=== PATIENT | female | born 1945 | race Caucasian/White ===

== ENCOUNTER 2022-03-31 10:12 | Inpatient (IN) | payer MEDICARE, OTHER ==
[~2022-03-31] VITALS: Ht 162.6 cm; Wt 94.7 kg
[2022-03-31 11:27] LABS: Basophils # (auto) 0.1 10 ^3/uL (0-0.2); Basophils % (auto) 0.5 % (0.0-2.0); Eosinophils # (auto) 0 10 ^3/uL (0-0.8); Hematocrit 36.6 % (36.0-46.0); Hemoglobin 11.5 g/dL (12.2-16.2); Lymphocytes # (auto) 1.6 10 ^3/uL (0.4-5.4); Lymphocytes % (auto) 7.5 % (10.0-50.0); Mean Corpuscular Hemoglobin 27.9 pg (28.0-32.0); Mean Corpuscular Hgb Conc. 31.5 g/dL (32.0-36.0); Mean Corpuscular Volume 88.7 fL (80.0-100.0); Monocytes # (auto) 1.1 10 ^3/uL (0-1.3); Monocytes % (auto) 5.2 % (0.0-12.0); Neutrophils # (auto) 18.8 10 ^3/uL (1.6-8.6); Neutrophils % (auto) 86.8 % (37.0-80.0); Nucleated Red Blood Cells % 0.1 %; Red Blood Cells 4.13 10^6/uL (4.0-5.20); Red Cell Distribution Width 13.2 % (11.8-14.3); White Blood Cell 21.7 10^3/uL (4.4-10.8)
[2022-03-31] MEDS ORDERED: ONDANSETRON HCL 4 MG/2 ML VIAL IV ONE (11:45)
[2022-03-31] MEDS ORDERED: MORPHINE SULFATE 4 MG/ML SYR/VIAL IV ONE (11:45)
[2022-03-31 11:50] LABS: Albumin 3.2 g/dL (3.4-5.0); BUN/Creatinine Ratio 16.4; Calcium 8.7 mg/dL (8.5-10.1); Potassium 4.8 mmol/L (3.5-5.1)
[2022-03-31 11:52] LABS: Bilirubin, Total 0.4 mg/dL (0.2-1.0)
[2022-03-31] MEDS ORDERED: SODIUM CHLORIDE 0.9% 1,000 ML IV ONE ×2 (14:30→17:15)
[2022-03-31] MEDS ORDERED: KETOROLAC TROMETH 30 MG/ML 1ML VIAL IV ONE (14:30)
[2022-03-31] MEDS ORDERED: SODIUM CHLORIDE 0.9% 500 ML IVB ONE (14:30)
[2022-03-31 15:53] LABS: Urine Bacteria NONE SEEN /hpf (None Seen); Urine Blood Negative /uL (Negative); Urine Hyaline Cast FEW /lpf (0 - 2); Urine Specific Gravity 1.017 (1.001-1.035); Urine WBC 1 /hpf (0 - 5)
[2022-03-31 16:16] LABS: Amphetamine Screen, Urine NEGATIVE (NEGATIVE); Barbiturate Scree,Urine NEGATIVE (NEGATIVE); Benzodiazephine Screen, Urine NEGATIVE (NEGATIVE); Cannabinoid Screen, Urine NEGATIVE (NEGATIVE); Cocaine Screen, Urine NEGATIVE (NEGATIVE); Phencyclidine Screen, Urine NEGATIVE (NEGATIVE)
[2022-03-31 16:24] LABS: Opiate Scree,Urine POSITIVE (NEGATIVE)
[2022-03-31] MEDS ORDERED: cefTRIAXone 1GM/50ML D5W 50 ML IV ONE (16:45)
[2022-03-31] MEDS ORDERED: ACETAMINOPHEN 325 MG TAB PO PRN (17:00)
[2022-03-31] MEDS ORDERED: DOCUSATE SOD 100 MG CAP PO PRN (17:00)
[2022-03-31] MEDS ORDERED: MORPHINE SULFATE INJ 2 MG/ml SYRG IV PRN (17:00)
[2022-03-31] MEDS ORDERED: ONDANSETRON HCL 4 MG/2 ML VIAL IV PRN (17:00)
[2022-03-31] MEDS: AZITHROMYCIN 500MG/ 250ML 250 ML IV SCH (20:41)
[2022-03-31] MEDS: HALOPERIDOL LACTATE 5 MG/ML INJ VIAL IM ONE ×2 (21:13→21:17)
[2022-03-31] MEDS ORDERED: HALOPERIDOL LACTATE 5 MG/ML INJ VIAL IM ONE (21:30)
[2022-03-31] MEDS: HYDROcodone-ACET 5/325MG TAB PO PRN (23:42)
[2022-03-31] MEDS: DULoxetine HCL 30 MG CAP PO SCH (23:42)
[2022-03-31] MEDS: GABAPENTIN 300 MG CAP PO SCH (23:42)
[2022-03-31] MEDS: traZODone HCL 50 MG TAB PO SCH (23:42)
[2022-04-01 05:14] LABS: Basophils # (auto) 0 10 ^3/uL (0-0.2); Basophils % (auto) 0.3 % (0.0-2.0); Eosinophils # (auto) 0 10 ^3/uL (0-0.8); Eosinophils % (auto) 0.3 % (0.0-7.0); Hematocrit 30.3 % (36.0-46.0); Hemoglobin 9.8 g/dL (12.2-16.2); Lymphocytes # (auto) 2.2 10 ^3/uL (0.4-5.4); Lymphocytes % (auto) 16.3 % (10.0-50.0); Mean Corpuscular Hemoglobin 28.5 pg (28.0-32.0); Mean Corpuscular Hgb Conc. 32.1 g/dL (32.0-36.0); Mean Corpuscular Volume 88.8 fL (80.0-100.0); Monocytes # (auto) 0.9 10 ^3/uL (0-1.3); Neutrophils # (auto) 10.1 10 ^3/uL (1.6-8.6); Neutrophils % (auto) 76.1 % (37.0-80.0); Red Blood Cells 3.42 10^6/uL (4.0-5.20); Red Cell Distribution Width 12.9 % (11.8-14.3); White Blood Cell 13.3 10^3/uL (4.4-10.8)
[2022-04-01 05:34] LABS: Albumin 2.7 g/dL (3.4-5.0); Potassium 3.9 mmol/L (3.5-5.1)
[2022-04-01 05:40] LABS: BUN/Creatinine Ratio 24.4; Bilirubin, Total 0.4 mg/dL (0.2-1.0); Calcium 8.3 mg/dL (8.5-10.1); Total Protein 5.7 g/dL (6.4-8.2)
[2022-04-01] MEDS: GABAPENTIN 300 MG CAP PO SCH ×3 (06:37→21:25)
[2022-04-01] MEDS: LEVOTHYROXINE SODIUM 25 MCG TAB PO SCH (06:37)
[2022-04-01] MEDS ORDERED: MAGNESIUM SULFATE 1GM/100ML 100 ML IV ONE (09:15)
[2022-04-01] MEDS: cefTRIAXone 1GM/50ML D5W 50 ML IV SCH (09:49)
[2022-04-01] MEDS ORDERED: METOPROLOL SUCCINATE XL 50 MG TAB PO SCH (10:00)
[2022-04-01] MEDS: AZITHROMYCIN 500MG/ 250ML 250 ML IV SCH (10:46)
[2022-04-01] MEDS: ENOXAPARIN SOD 30 MG/0.3 ML SYRINGE SC SCH (10:47)
[2022-04-01] MEDS: DULoxetine HCL 30 MG CAP PO SCH ×2 (10:48→21:25)
[2022-04-01] MEDS ORDERED: methylPREDNISolone SOD SUCC 125 MG/2 ML VL IM ONE (11:15)
[2022-04-01] MEDS ORDERED: methylPREDNISolone SOD SUCC 125 MG/2 ML VL IV ONE (12:15)
[2022-04-01] MEDS: ALBUTEROL SULF 2.5 MG/0.5ML(0.5%) NEB SOLN NEB SCH ×3 (14:12→22:13)
[2022-04-01] MEDS: IPRATROPIUM BROM 0.5 MG/2.5ML INH SOL NEB SCH ×3 (14:12→22:13)
[2022-04-01 14:56] VITALS: BP 134/70
[2022-04-01 15:48] VITALS: BP 119/72
[2022-04-01] MEDS ORDERED: DULO1CAP6 PO (18:54)
[2022-04-01] MEDS ORDERED: PANT40T (18:54)
[2022-04-01] MEDS ORDERED: METO-289 PO (18:54)
[2022-04-01] MEDS ORDERED: BACL10TA PO (18:54)
[2022-04-01] MEDS ORDERED: MONT-8 PO (18:54)
[2022-04-01] MEDS ORDERED: HYDR-4072 PO (18:54)
[2022-04-01] MEDS ORDERED: ALBU108A5 PO (18:54)
[2022-04-01] MEDS ORDERED: TRAZ100T3 PO (18:54)
[2022-04-01] MEDS ORDERED: BUPR100T8 PO (18:54)
[2022-04-01] MEDS ORDERED: LEV25T PO (18:54)
[2022-04-01] MEDS ORDERED: GABA300C10 PO (18:54)
[2022-04-01] MEDS: HYDROcodone-ACET 5/325MG TAB PO PRN (20:01)
[2022-04-01] MEDS: traZODone HCL 50 MG TAB PO SCH (21:24)
[2022-04-01 22:00] VITALS: BP 143/74
[2022-04-02] MEDS: ALBUTEROL SULF 2.5 MG/0.5ML(0.5%) NEB SOLN NEB SCH ×7 (02:14→21:51)
[2022-04-02] MEDS: IPRATROPIUM BROM 0.5 MG/2.5ML INH SOL NEB SCH ×7 (02:14→21:51)
[2022-04-02 05:00] VITALS: BP 138/79
[2022-04-02] MEDS: LEVOTHYROXINE SODIUM 25 MCG TAB PO SCH (05:52)
[2022-04-02] MEDS: GABAPENTIN 300 MG CAP PO SCH ×3 (05:52→22:47)
[2022-04-02 08:00] VITALS: BP 141/82
[2022-04-02] MEDS: cefTRIAXone 1GM/50ML D5W 50 ML IV SCH (09:30)
[2022-04-02] MEDS: DULoxetine HCL 30 MG CAP PO SCH ×2 (09:30→22:47)
[2022-04-02] MEDS: methylPREDNISolone SOD SUCC 125 MG/2 ML VL IV SCH (09:30)
[2022-04-02] MEDS: ENOXAPARIN SOD 30 MG/0.3 ML SYRINGE SC SCH (09:30)
[2022-04-02] MEDS: AZITHROMYCIN 500MG/ 250ML 250 ML IV SCH (11:32)
[2022-04-02 13:00] VITALS: BP 138/89
[2022-04-02 22:00] VITALS: BP 154/91
[2022-04-02] MEDS: traZODone HCL 50 MG TAB PO SCH (22:47)
[2022-04-02] MEDS: HYDROcodone-ACET 5/325MG TAB PO PRN (22:47)
[2022-04-02 23:46] VITALS: BP 148/82
[2022-04-03] MEDS: guaiFENesin-DM 100/10mg/5ml SYR PO PRN (02:14)
[2022-04-03] MEDS: IPRATROPIUM BROM 0.5 MG/2.5ML INH SOL NEB SCH ×6 (04:00→22:49)
[2022-04-03] MEDS: ALBUTEROL SULF 2.5 MG/0.5ML(0.5%) NEB SOLN NEB SCH ×6 (04:00→22:49)
[2022-04-03 05:00] VITALS: BP 147/86
[2022-04-03] MEDS: GABAPENTIN 300 MG CAP PO SCH ×3 (06:33→21:05)
[2022-04-03] MEDS: LEVOTHYROXINE SODIUM 25 MCG TAB PO SCH (06:47)
[2022-04-03 09:00] VITALS: BP 159/94
[2022-04-03] MEDS: cefTRIAXone 1GM/50ML D5W 50 ML IV SCH (10:29)
[2022-04-03] MEDS: methylPREDNISolone SOD SUCC 125 MG/2 ML VL IV SCH (10:29)
[2022-04-03] MEDS: ENOXAPARIN SOD 30 MG/0.3 ML SYRINGE SC SCH (10:30)
[2022-04-03] MEDS: AZITHROMYCIN 500MG/ 250ML 250 ML IV SCH (10:30)
[2022-04-03] MEDS: DULoxetine HCL 30 MG CAP PO SCH ×2 (10:30→21:05)
[2022-04-03] MEDS: HYDROcodone-ACET 5/325MG TAB PO PRN (11:52)
[2022-04-03 13:00] VITALS: BP 159/87
[2022-04-03 17:16] VITALS: BP 159/92
[2022-04-03] MEDS: traZODone HCL 50 MG TAB PO SCH (21:05)
[2022-04-03 22:00] VITALS: BP 144/81
[2022-04-04] MEDS: ALBUTEROL SULF 2.5 MG/0.5ML(0.5%) NEB SOLN NEB SCH ×6 (02:40→21:57)
[2022-04-04] MEDS: IPRATROPIUM BROM 0.5 MG/2.5ML INH SOL NEB SCH ×6 (02:40→21:57)
[2022-04-04 04:30] VITALS: BP 122/80
[2022-04-04] MEDS: GABAPENTIN 300 MG CAP PO SCH ×3 (05:32→22:28)
[2022-04-04] MEDS: guaiFENesin-DM 100/10mg/5ml SYR PO PRN ×2 (05:42→22:32)
[2022-04-04] MEDS: LEVOTHYROXINE SODIUM 25 MCG TAB PO SCH (06:15)
[2022-04-04 09:00] VITALS: BP 168/88
[2022-04-04] MEDS: ENOXAPARIN SOD 40 MG/0.4 ML SYRINGE SC SCH (09:01)
[2022-04-04] MEDS: DULoxetine HCL 30 MG CAP PO SCH ×2 (09:01→22:29)
[2022-04-04] MEDS: methylPREDNISolone SOD SUCC 125 MG/2 ML VL IV SCH (09:02)
[2022-04-04] MEDS: cefTRIAXone 1GM/50ML D5W 50 ML IV SCH (09:02)
[2022-04-04] MEDS: AZITHROMYCIN 500MG/ 250ML 250 ML IV SCH (09:56)
[2022-04-04] MEDS: HYDROcodone-ACET 5/325MG TAB PO PRN ×2 (10:03→16:24)
[2022-04-04 13:00] VITALS: BP 159/91
[2022-04-04 15:26] VITALS: BP 168/88
[2022-04-04 17:00] VITALS: BP 162/99
[2022-04-04] MEDS ORDERED: METOPROLOL SUCCINATE XL 50 MG TAB PO ONE (18:15)
[2022-04-04] MEDS ORDERED: hydrALAZINE HCL 20 MG/ML VL IV PRN (18:15)
[2022-04-04 22:00] VITALS: BP 154/91
[2022-04-04] MEDS: traZODone HCL 50 MG TAB PO SCH (22:29)
[2022-04-05] MEDS: ALBUTEROL SULF 2.5 MG/0.5ML(0.5%) NEB SOLN NEB SCH ×4 (01:58→14:12)
[2022-04-05] MEDS: IPRATROPIUM BROM 0.5 MG/2.5ML INH SOL NEB SCH ×4 (01:58→14:12)
[2022-04-05 05:00] VITALS: BP 162/92
[2022-04-05] MEDS: GABAPENTIN 300 MG CAP PO SCH ×2 (06:10→14:29)
[2022-04-05] MEDS: LEVOTHYROXINE SODIUM 25 MCG TAB PO SCH (06:11)
[2022-04-05 08:35] VITALS: BP 169/91
[2022-04-05] MEDS: methylPREDNISolone SOD SUCC 125 MG/2 ML VL IV SCH (08:36)
[2022-04-05] MEDS: cefTRIAXone 1GM/50ML D5W 50 ML IV SCH (08:36)
[2022-04-05] MEDS: guaiFENesin-DM 100/10mg/5ml SYR PO PRN (08:36)
[2022-04-05] MEDS: HYDROcodone-ACET 5/325MG TAB PO PRN ×2 (08:37→14:30)
[2022-04-05] MEDS: ENOXAPARIN SOD 40 MG/0.4 ML SYRINGE SC SCH (08:37)
[2022-04-05] MEDS: DULoxetine HCL 30 MG CAP PO SCH (08:37)
[2022-04-05] MEDS: AZITHROMYCIN 500MG/ 250ML 250 ML IV SCH (09:23)
[2022-04-05] MEDS ORDERED: AZIT500T66 PO (09:38)
[2022-04-05] MEDS ORDERED: PRED20TA2 PO (09:38)
[2022-04-05] MEDS ORDERED: METOPROLOL SUCCINATE XL 50 MG TAB PO SCH (10:00)
[2022-04-05 10:02] VITALS: BP 153/99
[2022-04-05 12:15] VITALS: BP 154/100
[2022-04-05 12:30] VITALS: BP 152/100
== END 2022-04-05 15:10 | disposition home health service (06) | DRG 871 ==
LOC: ER 10:12 → EDBD 10:12 → TELE-CENTR 14:43 → TELE 17:04 → TELE-CENTR 04-01 14:50
PROVIDERS: ADMIT Internal Medicine; ATTEND Family Medicine
DX: A41.9 Sepsis, unspecified organism (principal); I21.A1 Myocardial infarction type 2; J18.9 Pneumonia, unspecified organism; J96.21 Acute and chronic respiratory failure with hypoxia; E44.1 Mild protein-calorie malnutrition; J98.11 Atelectasis; N17.9 Acute kidney failure, unspecified; J44.0 Chronic obstructive pulmonary disease with (acute) lower respiratory infection; Z20.822 Contact with and (suspected) exposure to COVID-19; E03.9 Hypothyroidism, unspecified; D64.9 Anemia, unspecified; G89.4 Chronic pain syndrome; I12.9 Hypertensive chronic kidney disease with stage 1 through stage 4 chronic kidney disease, or unspecified chronic kidney disease; J84.112 Idiopathic pulmonary fibrosis; M75.32 Calcific tendinitis of left shoulder; M75.91 Shoulder lesion, unspecified, right shoulder; N18.32 Chronic kidney disease, stage 3b; F41.9 Anxiety disorder, unspecified; I95.9 Hypotension, unspecified; R41.82 Altered mental status, unspecified; F32.A Depression, unspecified; G62.9 Polyneuropathy, unspecified; Z68.35 Body mass index [BMI] 35.0-35.9, adult
CPT/HCPCS: 36415; 70450; 71045; 80053; 80307; 81001; 82962; 83605; 83735; 84443; 84484; 85025; 87040; 87077; 87186; 93005; 93306; 93970; 94640; 96361; 96365; G0378; J0696; J1885

== ENCOUNTER 2022-12-17 18:16 | Inpatient (IN) | payer MEDICARE ==
[~2022-12-17] VITALS: Ht 165.1 cm; Wt 79.3 kg
[~2022-12-17 18:16] MED LIST: ALBU108A5 PO; AZIT500T66 PO; BACL10TA PO; BUPR100T16 PO; DULO1CAP6 PO; GABA-1250 PO; HYDR-4072 PO; LEV25T PO; METO-289 PO; MONT-8 PO; PANT40T; PRED20TA2 PO; TRAZ-228 PO
[2022-12-17 21:38] LABS: Albumin 3.3 g/dL (3.4-5.0); Anion Gap 8 (5-15); Blood Alcohol < 3.0 mg/dL (0-5); Blood Urea Nitrogen 18 mg/dL (7-18); Calcium 9.2 mg/dL (8.5-10.1); Carbon Dioxide 29 mmol/L (21-32); Chloride 104 mmol/L (98-107); Glucose 99 mg/dL (74-106); Magnesium 1.4 mg/dL (1.6-2.6); Potassium 3.9 mmol/L (3.5-5.1); Sodium 141 mmol/L (136-145)
[2022-12-17 21:47] LABS: INR 0.99 (0.9-1.15); Partial Thromboplastin Time 23.9 sec (24.6-33.4)
[2022-12-17 21:48] LABS: Basophils # (auto) 0.1 10 ^3/uL (0-0.2); Basophils % (auto) 0.5 % (0.0-2.0); Eosinophils # (auto) 0 10 ^3/uL (0-0.8); Eosinophils % (auto) 0.4 % (0.0-7.0); Hemoglobin 10.9 g/dL (12.2-16.2); Lymphocytes # (auto) 3.4 10 ^3/uL (0.4-5.4); Lymphocytes % (auto) 33.8 % (10.0-50.0); Mean Corpuscular Hemoglobin 28.4 pg (28.0-32.0); Mean Corpuscular Volume 88.8 fL (80.0-100.0); Monocytes # (auto) 0.8 10 ^3/uL (0-1.3); Monocytes % (auto) 8.1 % (0.0-12.0); Neutrophils # (auto) 5.7 10 ^3/uL (1.6-8.6); Neutrophils % (auto) 57.2 % (37.0-80.0); Nucleated Red Blood Cells % 0.1 %; Red Blood Cells 3.83 10^6/uL (4.0-5.20); Red Cell Distribution Width 13.1 % (11.8-14.3)
[2022-12-17 21:52] LABS: Alanine Aminotransferase 18 U/L (13-56); Alkaline Phosphatase 69 U/L (45-117); Aspartate Aminotransferase 23 U/L (15-37); Bilirubin, Total 0.2 mg/dL (0.2-1.0); GFR African American 78 mL/min; GFR Non-African American 65 mL/min; Total Protein 6.2 g/dL (6.4-8.2)
[2022-12-17] MEDS ORDERED: ONDANSETRON HCL 4 MG/2 ML VIAL IV PRN (23:30)
[2022-12-17] MEDS ORDERED: DOCUSATE SOD 100 MG CAP PO PRN (23:30)
[2022-12-17] MEDS ORDERED: NITROGLYCERIN 0.4 MG SL TAB SL PRN (23:30)
[2022-12-17] MEDS ORDERED: MORPHINE SULFATE INJ 2 MG/ml SYRG IV PRN (23:30)
[2022-12-18] MEDS ORDERED: BACLOFEN 10 MG TAB PO ONE
[2022-12-18] MEDS: MAGNESIUM SULFATE 1GM/100ML 100 ML IV SCH ×2 (01:03→02:00)
[2022-12-18] MEDS: HYDROcodone-ACET 5/325MG TAB PO PRN ×2 (02:04→19:56)
[2022-12-18] MEDS: BACLOFEN 10 MG TAB PO SCH ×3 (06:30→22:14)
[2022-12-18] MEDS: LEVOTHYROXINE SODIUM 25 MCG TAB PO SCH (06:30)
[2022-12-18 06:42] LABS: Albumin 3.1 g/dL (3.4-5.0); BUN/Creatinine Ratio 16.3 (10.0-20.0); Bilirubin, Total 0.3 mg/dL (0.2-1.0); Calcium 9.2 mg/dL (8.5-10.1); Total Protein 6.7 g/dL (6.4-8.2)
[2022-12-18 07:42] LABS: Potassium 4.1 mmol/L (3.5-5.1)
[2022-12-18 08:06] LABS: Basophils # (auto) 0.1 10 ^3/uL (0-0.2); Basophils % (auto) 0.6 % (0.0-2.0); Eosinophils # (auto) 0.1 10 ^3/uL (0-0.8); Eosinophils % (auto) 0.9 % (0.0-7.0); Hematocrit 35.4 % (36.0-46.0); Hemoglobin 11.3 g/dL (12.2-16.2); Lymphocytes # (auto) 3.2 10 ^3/uL (0.4-5.4); Lymphocytes % (auto) 35.8 % (10.0-50.0); Mean Corpuscular Hemoglobin 28.4 pg (28.0-32.0); Mean Corpuscular Hgb Conc. 31.8 g/dL (32.0-36.0); Mean Corpuscular Volume 89.3 fL (80.0-100.0); Neutrophils # (auto) 4.6 10 ^3/uL (1.6-8.6); Neutrophils % (auto) 51.7 % (37.0-80.0); Nucleated Red Blood Cells % 0.2 %; Red Blood Cells 3.96 10^6/uL (4.0-5.20)
[2022-12-18] MEDS: ASPirin 81 mg TAB PO SCH (10:26)
[2022-12-18] MEDS: FAMOTIDINE (10MG/ML) 2ML VL IV SCH (10:44)
[2022-12-18 15:59] LABS: Urine Bacteria FEW /hpf (None Seen); Urine Blood 1+ /uL (Negative); Urine Specific Gravity 1.017 (1.001-1.035); Urine WBC 2770 /hpf (0 - 5); Urine WBC Clumps PRESENT /hpf (None Seen)
[2022-12-18] MEDS ORDERED: HALOPERIDOL LACTATE 5 MG/ML INJ VIAL IM ONE ×2 (18:00→20:15)
[2022-12-18] MEDS ORDERED: LORazepam 2MG/ML-1ML VIAL IV ONE ×2 (18:00→21:45)
[2022-12-18] MEDS: cefTRIAXone 1GM/50ML D5W 50 ML IV SCH (19:42)
[2022-12-18] MEDS: buPROPion HCL 100 MG TAB PO SCH (19:56)
[2022-12-18] MEDS ORDERED: diphenhdrAMINE HCL 50 MG/1 ML VL ONE (20:04)
[2022-12-18] MEDS ORDERED: HALOPERIDOL LACTATE 5 MG/ML INJ VIAL ONE (20:04)
[2022-12-18] MEDS ORDERED: diphenhdrAMINE HCL 50 MG/1 ML VL IV ONE (20:15)
[2022-12-18] MEDS ORDERED: LORazepam 2MG/ML-1ML VIAL ONE (21:44)
[2022-12-18] MEDS: DULoxetine HCL 30 MG CAP PO SCH (22:14)
[2022-12-18] MEDS ORDERED: MIDAZOLAM DRIP 50 mg/50mL 50 ML IV ONE (23:29)
[2022-12-18] MEDS ORDERED: ETOMIDATE (2MG/ML) 20ML VIAL IV ONE (23:30)
[2022-12-18] MEDS ORDERED: ROCURONIUM 10MG/ML 10ML VIAL IV ONE (23:30)
[2022-12-18] MEDS: MIDAZOLAM DRIP 50 mg/50mL 50 ML IV SCH (23:49)
[2022-12-19] VITALS (44 sets, daily range): BP systolic 99–131; BP diastolic 71–99
[2022-12-19] MEDS ORDERED: fentaNYL Drip 2500mCg/250mlNS 250 ML IV ONE (01:26)
[2022-12-19] MEDS: SODIUM CHLORIDE 0.9% 1,000 ML IV SCH ×2 (01:30→12:59)
[2022-12-19] MEDS ORDERED: MIDAZOLAM HCL 5 MG/ML-1ML VIAL IV ONE (01:30)
[2022-12-19] MEDS: fentaNYL Drip 2500mCg/250mlNS 250 ML IV SCH (01:35)
[2022-12-19] MEDS: FAMOTIDINE (10MG/ML) 2ML VL IV SCH ×3 (02:42→21:43)
[2022-12-19] MEDS: MIDAZOLAM DRIP 50 mg/50mL 50 ML IV SCH ×2 (06:25→15:53)
[2022-12-19] MEDS: buPROPion HCL 100 MG TAB PO SCH ×2 (07:18→18:43)
[2022-12-19] MEDS: LEVOTHYROXINE SODIUM 25 MCG TAB PO SCH (07:18)
[2022-12-19] MEDS: BACLOFEN 10 MG TAB PO SCH (07:18)
[2022-12-19] MEDS: cefTRIAXone 1GM/50ML D5W 50 ML IV SCH (09:12)
[2022-12-19] MEDS: ASPirin 81 mg TAB PO SCH (10:47)
[2022-12-19] MEDS: DULoxetine HCL 30 MG CAP PO SCH ×3 (10:47→21:52)
[2022-12-19] MEDS: METOPROLOL TARTRATE 25 MG TAB PO SCH ×2 (12:54→21:43)
[2022-12-19 13:42] LABS: Albumin 3.2 g/dL (3.4-5.0); Calcium 8.6 mg/dL (8.5-10.1); Potassium 3.4 mmol/L (3.5-5.1)
[2022-12-19 13:46] LABS: BUN/Creatinine Ratio 16.7 (10.0-20.0); Bilirubin, Total 0.4 mg/dL (0.2-1.0); Total Protein 7.2 g/dL (6.4-8.2)
[2022-12-20] VITALS (99 sets, daily range): BP systolic 71–137; BP diastolic 30–88
[2022-12-20] MEDS: fentaNYL Drip 2500mCg/250mlNS 250 ML IV SCH (01:30)
[2022-12-20] MEDS: MIDAZOLAM DRIP 50 mg/50mL 50 ML IV SCH ×2 (06:10→18:20)
[2022-12-20] MEDS: LEVOTHYROXINE SODIUM 25 MCG TAB PO SCH (08:03)
[2022-12-20] MEDS: buPROPion HCL 100 MG TAB PO SCH ×2 (08:03→22:17)
[2022-12-20] MEDS: cefTRIAXone 1GM/50ML D5W 50 ML IV SCH (08:04)
[2022-12-20 08:20] LABS: Albumin 2.5 g/dL (3.4-5.0); BUN/Creatinine Ratio 14.3 (10.0-20.0); Calcium 7.9 mg/dL (8.5-10.1); Potassium 3.7 mmol/L (3.5-5.1)
[2022-12-20 08:22] LABS: Bilirubin, Total 0.5 mg/dL (0.2-1.0); Total Protein 6.1 g/dL (6.4-8.2)
[2022-12-20 09:56] LABS: Basophils # (auto) 0.1 10 ^3/uL (0-0.2); Basophils % (auto) 0.5 % (0.0-2.0); Eosinophils # (auto) 0 10 ^3/uL (0-0.8); Eosinophils % (auto) 0.2 % (0.0-7.0); Hematocrit 36.2 % (36.0-46.0); Hemoglobin 11.5 g/dL (12.2-16.2); Lymphocytes % (auto) 20.6 % (10.0-50.0); Mean Corpuscular Hemoglobin 28.1 pg (28.0-32.0); Mean Corpuscular Hgb Conc. 31.9 g/dL (32.0-36.0); Mean Corpuscular Volume 88.1 fL (80.0-100.0); Monocytes # (auto) 1.6 10 ^3/uL (0-1.3); Monocytes % (auto) 11.1 % (0.0-12.0); Neutrophils # (auto) 9.8 10 ^3/uL (1.6-8.6); Neutrophils % (auto) 67.6 % (37.0-80.0); Nucleated Red Blood Cells % 0.1 %; Red Blood Cells 4.11 10^6/uL (4.0-5.20); White Blood Cell 14.6 10^3/uL (4.4-10.8)
[2022-12-20] MEDS: DULoxetine HCL 30 MG CAP PO SCH ×2 (10:00→22:00)
[2022-12-20] MEDS: ASPirin 81 mg TAB PO SCH (10:13)
[2022-12-20] MEDS: METOPROLOL TARTRATE 25 MG TAB PO SCH (10:14)
[2022-12-20] MEDS: FAMOTIDINE (10MG/ML) 2ML VL IV SCH ×2 (10:14→22:13)
[2022-12-20] MEDS: SODIUM CHLORIDE 0.9% 1,000 ML IV SCH ×2 (12:09→18:24)
[2022-12-20] MEDS ORDERED: NOREPINEPHRINE 8 MG/250ML KIT 250 ML IV SCH (12:30)
[2022-12-20] MEDS ORDERED: SODIUM CHLORIDE 0.9% 500 ML IV ONE (13:00)
[2022-12-20] MEDS ORDERED: NOREPINEPHRINE 8 MG/250ML KIT 250 ML IV ONE (14:26)
[2022-12-20] MEDS: NOREPINEPHRINE 8 MG/250ML KIT 250 ML IV SCH (14:26)
[2022-12-20] MEDS ORDERED: MAGNESIUM SULFATE 1GM/100ML 200 ML IV ONE (14:33)
[2022-12-20] MEDS ORDERED: AMIODARONE 450mg/250ml AE 250 ML IV ONE (14:42)
[2022-12-20] MEDS ORDERED: AMIODARONE HCL 150 MG in D5W 5% 100 ML IV ONE (14:45)
[2022-12-20] MEDS ORDERED: AMIODARONE 450mg/250ml AE 250 ML IV SCH (14:45)
[2022-12-20 15:29] LABS: Basophils # (auto) 0.1 10 ^3/uL (0-0.2); Basophils % (auto) 0.4 % (0.0-2.0); Eosinophils # (auto) 0 10 ^3/uL (0-0.8); Eosinophils % (auto) 0.2 % (0.0-7.0); Hematocrit 36.4 % (36.0-46.0); Hemoglobin 11.6 g/dL (12.2-16.2); Lymphocytes # (auto) 2.4 10 ^3/uL (0.4-5.4); Lymphocytes % (auto) 12.9 % (10.0-50.0); Mean Corpuscular Hemoglobin 28.2 pg (28.0-32.0); Mean Corpuscular Hgb Conc. 31.9 g/dL (32.0-36.0); Mean Corpuscular Volume 88.6 fL (80.0-100.0); Monocytes # (auto) 1.4 10 ^3/uL (0-1.3); Monocytes % (auto) 7.3 % (0.0-12.0); Neutrophils # (auto) 14.7 10 ^3/uL (1.6-8.6); Neutrophils % (auto) 79.2 % (37.0-80.0); Red Blood Cells 4.11 10^6/uL (4.0-5.20); Red Cell Distribution Width 13.2 % (11.8-14.3); White Blood Cell 18.6 10^3/uL (4.4-10.8)
[2022-12-20] MEDS: MAGNESIUM SULFATE 1GM/100ML 100 ML IV SCH ×2 (15:55→16:30)
[2022-12-20 16:02] LABS: Potassium 3.7 mmol/L (3.5-5.1)
[2022-12-20 16:07] LABS: Calcium 8.1 mg/dL (8.5-10.1); Magnesium 2.4 mg/dL (1.6-2.6)
[2022-12-20 18:26] LABS: BUN/Creatinine Ratio 12.8 (10.0-20.0)
[2022-12-20] MEDS: AMIODARONE 450mg/250ml AE 250 ML IV SCH (22:00)
[2022-12-20] MEDS: ENOXAPARIN SOD 100 MG/1 ML SYRINGE SC SCH (22:13)
[2022-12-20] MEDS: NYSTATIN TOPICAL POWDER 15GM TOP SCH (22:17)
[2022-12-21] VITALS (106 sets, daily range): BP systolic 85–122; BP diastolic 52–77
[2022-12-21] MEDS ORDERED: AMIODARONE HCL (50 MG/ ML) 3 ML VIAL IV ONE (01:01)
[2022-12-21] MEDS ORDERED: ADENOSINE 6 MG/2 ML INJ IV ONE (01:01)
[2022-12-21] MEDS: fentaNYL Drip 2500mCg/250mlNS 250 ML IV SCH ×2 (01:30→20:42)
[2022-12-21 04:31] LABS: Basophils # (auto) 0 10 ^3/uL (0-0.2); Basophils % (auto) 0.3 % (0.0-2.0); Eosinophils # (auto) 0 10 ^3/uL (0-0.8); Eosinophils % (auto) 0.3 % (0.0-7.0); Hematocrit 33.8 % (36.0-46.0); Hemoglobin 11.2 g/dL (12.2-16.2); Lymphocytes # (auto) 3.5 10 ^3/uL (0.4-5.4); Lymphocytes % (auto) 24.2 % (10.0-50.0); Mean Corpuscular Hemoglobin 29.2 pg (28.0-32.0); Mean Corpuscular Volume 88.4 fL (80.0-100.0); Monocytes # (auto) 2.1 10 ^3/uL (0-1.3); Monocytes % (auto) 14.6 % (0.0-12.0); Neutrophils # (auto) 8.9 10 ^3/uL (1.6-8.6); Neutrophils % (auto) 60.6 % (37.0-80.0); Red Blood Cells 3.82 10^6/uL (4.0-5.20); Red Cell Distribution Width 12.8 % (11.8-14.3); White Blood Cell 14.6 10^3/uL (4.4-10.8)
[2022-12-21 04:58] LABS: BUN/Creatinine Ratio 15.5 (10.0-20.0); Calcium 7.7 mg/dL (8.5-10.1)
[2022-12-21] MEDS: SODIUM CHLORIDE 0.9% 1,000 ML IV SCH (05:59)
[2022-12-21] MEDS: buPROPion HCL 100 MG TAB PO SCH ×2 (06:02→18:40)
[2022-12-21] MEDS: LEVOTHYROXINE SODIUM 25 MCG TAB PO SCH (06:02)
[2022-12-21] MEDS ORDERED: POTASSIUM EFFERVESENT TAB 25 MEQ GT ONE (08:45)
[2022-12-21] MEDS: ENOXAPARIN SOD 100 MG/1 ML SYRINGE SC SCH ×2 (09:08→21:30)
[2022-12-21] MEDS: FAMOTIDINE (10MG/ML) 2ML VL IV SCH ×2 (09:09→21:29)
[2022-12-21] MEDS: D5W/SOD CHL 0.45%/KCL 20MEQ 1,000 ML IV SCH (09:09)
[2022-12-21] MEDS: ASPirin 81 mg TAB PO SCH (09:09)
[2022-12-21] MEDS: DULoxetine HCL 30 MG CAP PO SCH ×2 (09:09→21:29)
[2022-12-21] MEDS: NYSTATIN TOPICAL POWDER 15GM TOP SCH ×2 (09:11→21:30)
[2022-12-21] MEDS ORDERED: MAGNESIUM SULFATE 1GM/100ML 100 ML IV ONE (09:30)
[2022-12-21 09:52] LABS: Cholesterol 130 mg/dL (< 200); HDL Cholesterol 66 mg/dL (40-59); LDL Cholesterol 57 mg/dL (< 100); Triglycerides 74 mg/dL (< 150)
[2022-12-21] MEDS: MIDAZOLAM DRIP 50 mg/50mL 50 ML IV SCH ×2 (12:04→14:43)
[2022-12-21] MEDS: AMIODARONE 450mg/250ml AE 250 ML IV SCH (12:05)
[2022-12-21] MEDS: MEROPENEM 1GM IVPB 100 ML IV SCH ×2 (12:05→18:35)
[2022-12-21] MEDS: NOREPINEPHRINE 8 MG/250ML KIT 250 ML IV SCH ×2 (16:00→20:41)
[2022-12-22] VITALS (99 sets, daily range): BP systolic 84–114; BP diastolic 50–86
[2022-12-22] MEDS: MEROPENEM 1GM IVPB 100 ML IV SCH ×3 (01:31→17:30)
[2022-12-22] MEDS: AMIODARONE 450mg/250ml AE 250 ML IV SCH (02:45)
[2022-12-22 04:17] LABS: Basophils # (auto) 0.1 10 ^3/uL (0-0.2); Basophils % (auto) 0.3 % (0.0-2.0); Eosinophils # (auto) 0 10 ^3/uL (0-0.8); Eosinophils % (auto) 0.2 % (0.0-7.0); Hematocrit 32.4 % (36.0-46.0); Hemoglobin 10.7 g/dL (12.2-16.2); Lymphocytes # (auto) 2.5 10 ^3/uL (0.4-5.4); Lymphocytes % (auto) 16.3 % (10.0-50.0); Mean Corpuscular Hemoglobin 28.9 pg (28.0-32.0); Mean Corpuscular Hgb Conc. 32.9 g/dL (32.0-36.0); Mean Corpuscular Volume 87.8 fL (80.0-100.0); Monocytes # (auto) 1.7 10 ^3/uL (0-1.3); Monocytes % (auto) 11.5 % (0.0-12.0); Neutrophils # (auto) 10.8 10 ^3/uL (1.6-8.6); Neutrophils % (auto) 71.7 % (37.0-80.0); Red Blood Cells 3.69 10^6/uL (4.0-5.20); White Blood Cell 15.1 10^3/uL (4.4-10.8)
[2022-12-22 04:29] LABS: Calcium 7.8 mg/dL (8.5-10.1); Potassium 3.7 mmol/L (3.5-5.1)
[2022-12-22 04:34] LABS: Albumin 2.1 g/dL (3.4-5.0); BUN/Creatinine Ratio 12.9 (10.0-20.0); Bilirubin, Total 0.4 mg/dL (0.2-1.0); Magnesium 1.7 mg/dL (1.6-2.6); Total Protein 5.7 g/dL (6.4-8.2)
[2022-12-22] MEDS: D5W/SOD CHL 0.45%/KCL 20MEQ 1,000 ML IV SCH ×4 (04:43→21:40)
[2022-12-22] MEDS: MIDAZOLAM DRIP 50 mg/50mL 50 ML IV SCH (04:48)
[2022-12-22 04:52] LABS: INR 1.09 (0.9-1.15); Partial Thromboplastin Time 32.8 sec (24.6-33.4)
[2022-12-22] MEDS: LEVOTHYROXINE SODIUM 25 MCG TAB PO SCH (06:41)
[2022-12-22] MEDS: buPROPion HCL 100 MG TAB PO SCH (06:42)
[2022-12-22] MEDS: ASPirin 81 mg TAB PO SCH (10:00)
[2022-12-22] MEDS: ENOXAPARIN SOD 100 MG/1 ML SYRINGE SC SCH ×2 (10:00→21:39)
[2022-12-22] MEDS ORDERED: LIDOCAINE 2%HCL (LOCAL ANESTH.) INJ 20ML MDV ONE (10:21)
[2022-12-22] MEDS ORDERED: IODIXANOL 320MG/ML 100ML BTL IV ONE (10:21)
[2022-12-22] MEDS ORDERED: ANGIOMAX 250 MG VIAL IV ONE (10:53)
[2022-12-22] MEDS ORDERED: SODIUM CHL 0.9% 0 ML ONE (10:53)
[2022-12-22] MEDS: FAMOTIDINE (10MG/ML) 2ML VL IV SCH ×2 (12:14→21:39)
[2022-12-22] MEDS: NYSTATIN TOPICAL POWDER 15GM TOP SCH ×2 (12:16→21:40)
[2022-12-22] MEDS: AMIODARONE HCL 200 MG TAB PO SCH ×2 (14:29→21:39)
[2022-12-22] MEDS: DULoxetine HCL 30 MG CAP PO SCH ×2 (14:29→21:39)
[2022-12-22] MEDS: Jevity 1.2 Cal/Fiber 1 Liter GT SCH (14:30)
[2022-12-23] VITALS (104 sets, daily range): BP systolic 77–122; BP diastolic 50–78
[2022-12-23] MEDS: fentaNYL Drip 2500mCg/250mlNS 250 ML IV SCH (01:30)
[2022-12-23] MEDS: MEROPENEM 1GM IVPB 100 ML IV SCH ×3 (02:35→17:01)
[2022-12-23 04:40] LABS: Basophils # (auto) 0 10 ^3/uL (0-0.2); Basophils % (auto) 0.3 % (0.0-2.0); Eosinophils # (auto) 0 10 ^3/uL (0-0.8); Eosinophils % (auto) 0.3 % (0.0-7.0); Hematocrit 30.6 % (36.0-46.0); Hemoglobin 10.2 g/dL (12.2-16.2); Lymphocytes # (auto) 1.9 10 ^3/uL (0.4-5.4); Lymphocytes % (auto) 13.6 % (10.0-50.0); Mean Corpuscular Hemoglobin 29.4 pg (28.0-32.0); Mean Corpuscular Hgb Conc. 33.5 g/dL (32.0-36.0); Mean Corpuscular Volume 87.6 fL (80.0-100.0); Monocytes # (auto) 1.9 10 ^3/uL (0-1.3); Monocytes % (auto) 14.1 % (0.0-12.0); Neutrophils # (auto) 9.8 10 ^3/uL (1.6-8.6); Neutrophils % (auto) 71.7 % (37.0-80.0); Nucleated Red Blood Cells % 0.1 %; Red Blood Cells 3.49 10^6/uL (4.0-5.20); Red Cell Distribution Width 12.8 % (11.8-14.3); White Blood Cell 13.7 10^3/uL (4.4-10.8)
[2022-12-23 04:55] LABS: BUN/Creatinine Ratio 12.7 (10.0-20.0); Calcium 8.2 mg/dL (8.5-10.1); Magnesium 1.2 mg/dL (1.6-2.6); Potassium 3.9 mmol/L (3.5-5.1)
[2022-12-23] MEDS: LEVOTHYROXINE SODIUM 25 MCG TAB PO SCH (06:39)
[2022-12-23] MEDS: NOREPINEPHRINE 8 MG/250ML KIT 250 ML IV SCH (08:07)
[2022-12-23] MEDS: DULoxetine HCL 30 MG CAP PO SCH ×2 (10:51→21:18)
[2022-12-23] MEDS: FAMOTIDINE (10MG/ML) 2ML VL IV SCH ×2 (10:51→21:18)
[2022-12-23] MEDS: ENOXAPARIN SOD 100 MG/1 ML SYRINGE SC SCH ×2 (10:51→21:18)
[2022-12-23] MEDS: AMIODARONE HCL 200 MG TAB PO SCH (10:51)
[2022-12-23] MEDS: NYSTATIN TOPICAL POWDER 15GM TOP SCH ×2 (11:05→21:18)
[2022-12-23] MEDS: ASPirin 81 mg TAB PO SCH (11:06)
[2022-12-23] MEDS ORDERED: MAGNESIUM SULFATE 1GM/100ML 100 ML IV ONE (11:45)
[2022-12-23] MEDS ORDERED: DIGOXIN (250MCG/ML) 2 ML AMPULE IV ONE (11:45)
[2022-12-23] MEDS: MAGNESIUM SULFATE 1GM/100ML 100 ML IV SCH ×4 (12:09→17:26)
[2022-12-23] MEDS: POTASSIUM CHL 20MEQ/100ML 100 ML IV SCH ×2 (12:10→13:52)
[2022-12-23] MEDS ORDERED: AMIODARONE 450mg/250ml AE 250 ML IV ONE (12:12)
[2022-12-23] MEDS ORDERED: ALBUMIN 25% 100 ML IV ONE (12:15)
[2022-12-23] MEDS ORDERED: AMIODARONE 450mg/250ml AE 250 ML IV SCH (12:15)
[2022-12-23] MEDS: AMIODARONE 450mg/250ml AE 250 ML IV SCH ×2 (12:30→19:15)
[2022-12-23] MEDS: Jevity 1.2 Cal/Fiber 1 Liter GT SCH (17:07)
[2022-12-23] MEDS ORDERED: OXYB5SOL PO (18:57)
[2022-12-23] MEDS ORDERED: BUPR150T8 PO (18:57)
[2022-12-23] MEDS ORDERED: AMIODARONE HCL 200 MG TAB PO SCH (22:00)
[2022-12-23] MEDS: MIDAZOLAM DRIP 50 mg/50mL 50 ML IV SCH (23:30)
[2022-12-24] VITALS (105 sets, daily range): BP systolic 64–148; BP diastolic 43–96
[2022-12-24] MEDS: fentaNYL Drip 2500mCg/250mlNS 250 ML IV SCH (01:30)
[2022-12-24] MEDS: MEROPENEM 1GM IVPB 100 ML IV SCH ×3 (01:50→19:56)
[2022-12-24] MEDS: AMIODARONE 450mg/250ml AE 250 ML IV SCH ×4 (01:56→19:52)
[2022-12-24 04:28] LABS: Basophils # (auto) 0 10 ^3/uL (0-0.2); Basophils % (auto) 0.4 % (0.0-2.0); Eosinophils # (auto) 0.1 10 ^3/uL (0-0.8); Eosinophils % (auto) 0.9 % (0.0-7.0); Hematocrit 28.2 % (36.0-46.0); Hemoglobin 9.4 g/dL (12.2-16.2); Lymphocytes # (auto) 1.9 10 ^3/uL (0.4-5.4); Lymphocytes % (auto) 19.4 % (10.0-50.0); Mean Corpuscular Hemoglobin 29.2 pg (28.0-32.0); Mean Corpuscular Hgb Conc. 33.4 g/dL (32.0-36.0); Mean Corpuscular Volume 87.5 fL (80.0-100.0); Monocytes # (auto) 1.4 10 ^3/uL (0-1.3); Monocytes % (auto) 14.1 % (0.0-12.0); Neutrophils # (auto) 6.5 10 ^3/uL (1.6-8.6); Neutrophils % (auto) 65.2 % (37.0-80.0); Red Blood Cells 3.23 10^6/uL (4.0-5.20); Red Cell Distribution Width 12.9 % (11.8-14.3)
[2022-12-24 04:44] LABS: Albumin 2.2 g/dL (3.4-5.0); Calcium 8.7 mg/dL (8.5-10.1); Magnesium 2.1 mg/dL (1.6-2.6); Potassium 4.3 mmol/L (3.5-5.1)
[2022-12-24 04:48] LABS: BUN/Creatinine Ratio 12.7 (10.0-20.0); Bilirubin, Total 0.2 mg/dL (0.2-1.0); Phosphorus 2.8 mg/dL (2.5-4.90); Total Protein 5.6 g/dL (6.4-8.2)
[2022-12-24] MEDS: LEVOTHYROXINE SODIUM 25 MCG TAB PO SCH (06:42)
[2022-12-24] MEDS ORDERED: MAGNESIUM SULFATE 1GM/100ML 100 ML IV ONE ×2 (09:15→15:09)
[2022-12-24] MEDS: NYSTATIN TOPICAL POWDER 15GM TOP SCH ×2 (10:34→21:57)
[2022-12-24] MEDS: ASPirin 81 mg TAB PO SCH (10:35)
[2022-12-24] MEDS: DULoxetine HCL 30 MG CAP PO SCH ×2 (10:36→21:56)
[2022-12-24] MEDS: ENOXAPARIN SOD 100 MG/1 ML SYRINGE SC SCH ×2 (10:38→21:56)
[2022-12-24] MEDS: FUROSEMIDE 40 MG/4 ML VIAL IV SCH (10:38)
[2022-12-24] MEDS: FAMOTIDINE (10MG/ML) 2ML VL IV SCH ×2 (10:38→21:56)
[2022-12-24] MEDS ORDERED: AMIODARONE 450mg/250ml AE 250 ML IV ONE (13:30)
[2022-12-24] MEDS ORDERED: AMIODARONE HCL 200 MG TAB PO SCH (13:30)
[2022-12-24] MEDS ORDERED: SODIUM CHLORIDE 0.9% 500 ML IV ONE ×2 (15:15→17:15)
[2022-12-24] MEDS: MAGNESIUM SULFATE 1GM/100ML 100 ML IV SCH ×2 (15:16→16:53)
[2022-12-24] MEDS: NOREPINEPHRINE 8 MG/250ML KIT 250 ML IV SCH (16:00)
[2022-12-24] MEDS ORDERED: METOPROLOL TARTRATE 1MG/1ML-5ML VIAL IV ONE ×2 (16:39→16:45)
[2022-12-24] MEDS ORDERED: DIGOXIN (250MCG/ML) 2 ML AMPULE ONE (16:39)
[2022-12-24] MEDS ORDERED: dilTIAZem 125mg/125ml BAG KIT 100 ML IV SCH (16:45)
[2022-12-24] MEDS ORDERED: DIGOXIN (250MCG/ML) 2 ML AMPULE IV ONE (16:45)
[2022-12-24] MEDS ORDERED: ALBUMIN 25% 100 ML IV ONE ×2 (17:15→17:18)
[2022-12-24] MEDS: Jevity 1.2 Cal/Fiber 1 Liter GT SCH (21:00)
[2022-12-24] MEDS: MIDAZOLAM DRIP 50 mg/50mL 50 ML IV SCH (23:30)
[2022-12-25] VITALS (105 sets, daily range): BP systolic 80–163; BP diastolic 62–114
[2022-12-25] MEDS: METOPROLOL TARTRATE 1MG/1ML-5ML VIAL IV SCH ×5 (00:18→23:30)
[2022-12-25] MEDS: fentaNYL Drip 2500mCg/250mlNS 250 ML IV SCH (01:30)
[2022-12-25] MEDS: AMIODARONE 450mg/250ml AE 250 ML IV SCH ×3 (02:45→18:15)
[2022-12-25] MEDS: MEROPENEM 1GM IVPB 100 ML IV SCH ×3 (02:56→18:07)
[2022-12-25] MEDS: LEVOTHYROXINE SODIUM 25 MCG TAB PO SCH (05:18)
[2022-12-25 08:04] LABS: Basophils # (auto) 0.1 10 ^3/uL (0-0.2); Basophils % (auto) 1.1 % (0.0-2.0); Eosinophils # (auto) 0.1 10 ^3/uL (0-0.8); Eosinophils % (auto) 0.5 % (0.0-7.0); Hematocrit 29.6 % (36.0-46.0); Hemoglobin 9.7 g/dL (12.2-16.2); Lymphocytes # (auto) 1.9 10 ^3/uL (0.4-5.4); Lymphocytes % (auto) 17.3 % (10.0-50.0); Mean Corpuscular Hgb Conc. 32.8 g/dL (32.0-36.0); Mean Corpuscular Volume 88.5 fL (80.0-100.0); Monocytes # (auto) 1.5 10 ^3/uL (0-1.3); Monocytes % (auto) 14.2 % (0.0-12.0); Neutrophils # (auto) 7.3 10 ^3/uL (1.6-8.6); Neutrophils % (auto) 66.9 % (37.0-80.0); Red Blood Cells 3.35 10^6/uL (4.0-5.20); Red Cell Distribution Width 12.8 % (11.8-14.3); White Blood Cell 10.8 10^3/uL (4.4-10.8)
[2022-12-25 08:28] LABS: BUN/Creatinine Ratio 12.1 (10.0-20.0); Calcium 9.2 mg/dL (8.5-10.1)
[2022-12-25] MEDS: ASPirin 81 mg TAB PO SCH (10:28)
[2022-12-25] MEDS: FUROSEMIDE 40 MG/4 ML VIAL IV SCH (10:28)
[2022-12-25] MEDS: ENOXAPARIN SOD 100 MG/1 ML SYRINGE SC SCH ×2 (10:28→21:27)
[2022-12-25] MEDS: DULoxetine HCL 30 MG CAP PO SCH ×2 (10:28→21:26)
[2022-12-25] MEDS: FAMOTIDINE (10MG/ML) 2ML VL IV SCH ×2 (10:28→21:26)
[2022-12-25] MEDS: NYSTATIN TOPICAL POWDER 15GM TOP SCH ×2 (10:29→21:27)
[2022-12-25] MEDS: NOREPINEPHRINE 8 MG/250ML KIT 250 ML IV SCH (16:00)
[2022-12-25] MEDS: MAGNESIUM SULFATE 1GM/100ML 100 ML IV SCH ×2 (18:07→19:17)
[2022-12-25] MEDS: MIDAZOLAM DRIP 50 mg/50mL 50 ML IV SCH (23:30)
[2022-12-26] VITALS (101 sets, daily range): BP systolic 81–140; BP diastolic 45–97
[2022-12-26] MEDS: fentaNYL Drip 2500mCg/250mlNS 250 ML IV SCH (01:06)
[2022-12-26] MEDS: MEROPENEM 1GM IVPB 100 ML IV SCH ×3 (01:54→18:35)
[2022-12-26] MEDS: AMIODARONE 450mg/250ml AE 250 ML IV SCH ×5 (02:00→17:45)
[2022-12-26 04:09] LABS: Eosinophils # (auto) 0.1 10 ^3/uL (0-0.8); Hemoglobin 11.7 g/dL (12.2-16.2); Monocytes # (auto) 2.5 10 ^3/uL (0-1.3)
[2022-12-26 04:13] LABS: Basophils # (auto) 0.2 10 ^3/uL (0-0.2); Basophils % (auto) 1.2 % (0.0-2.0); Eosinophils % (auto) 0.5 % (0.0-7.0); Hematocrit 35.3 % (36.0-46.0); Lymphocytes # (auto) 2.3 10 ^3/uL (0.4-5.4); Lymphocytes % (auto) 16.5 % (10.0-50.0); Mean Corpuscular Hemoglobin 28.5 pg (28.0-32.0); Mean Corpuscular Volume 86.4 fL (80.0-100.0); Monocytes % (auto) 17.5 % (0.0-12.0); Neutrophils % (auto) 64.3 % (37.0-80.0); Red Blood Cells 4.09 10^6/uL (4.0-5.20); Red Cell Distribution Width 12.7 % (11.8-14.3)
[2022-12-26 04:40] LABS: Potassium 3.7 mmol/L (3.5-5.1)
[2022-12-26 04:52] LABS: Albumin 2.7 g/dL (3.4-5.0); BUN/Creatinine Ratio 11.3 (10.0-20.0); Bilirubin, Total 0.4 mg/dL (0.2-1.0); Calcium 9.7 mg/dL (8.5-10.1); Magnesium 1.4 mg/dL (1.6-2.6); Total Protein 6.9 g/dL (6.4-8.2)
[2022-12-26] MEDS: METOPROLOL TARTRATE 1MG/1ML-5ML VIAL IV SCH ×3 (05:36→18:35)
[2022-12-26] MEDS: LEVOTHYROXINE SODIUM 25 MCG TAB PO SCH (05:36)
[2022-12-26] MEDS: ASPirin 81 mg TAB PO SCH (09:45)
[2022-12-26] MEDS: ENOXAPARIN SOD 100 MG/1 ML SYRINGE SC SCH ×2 (09:49→22:15)
[2022-12-26] MEDS: FAMOTIDINE (10MG/ML) 2ML VL IV SCH ×2 (09:49→22:15)
[2022-12-26] MEDS: FUROSEMIDE 40 MG/4 ML VIAL IV SCH ×2 (09:49→22:15)
[2022-12-26] MEDS: DULoxetine HCL 30 MG CAP PO SCH ×3 (09:54→22:15)
[2022-12-26] MEDS: NYSTATIN TOPICAL POWDER 15GM TOP SCH ×2 (10:01→22:15)
[2022-12-26] MEDS: MAGNESIUM SULFATE 1GM/100ML 100 ML IV SCH ×4 (10:31→13:20)
[2022-12-26] MEDS: NOREPINEPHRINE 8 MG/250ML KIT 250 ML IV SCH (13:09)
[2022-12-26] MEDS ORDERED: MAGNESIUM SULFATE 1GM/100ML 100 ML IV SCH (16:30)
[2022-12-26] MEDS: MIDAZOLAM DRIP 50 mg/50mL 50 ML IV SCH (23:30)
[2022-12-27] VITALS (57 sets, daily range): BP systolic 76–150; BP diastolic 32–79
[2022-12-27] MEDS: METOPROLOL TARTRATE 1MG/1ML-5ML VIAL IV SCH ×4 (00:47→17:40)
[2022-12-27] MEDS: fentaNYL Drip 2500mCg/250mlNS 250 ML IV SCH (01:25)
[2022-12-27] MEDS: MEROPENEM 1GM IVPB 100 ML IV SCH ×3 (01:52→18:05)
[2022-12-27 03:38] LABS: Basophils # (auto) 0.1 10 ^3/uL (0-0.2); Basophils % (auto) 0.7 % (0.0-2.0); Eosinophils # (auto) 0.1 10 ^3/uL (0-0.8); Eosinophils % (auto) 0.7 % (0.0-7.0); Hematocrit 33.1 % (36.0-46.0); Hemoglobin 10.9 g/dL (12.2-16.2); Lymphocytes # (auto) 2.1 10 ^3/uL (0.4-5.4); Lymphocytes % (auto) 15.3 % (10.0-50.0); Mean Corpuscular Hemoglobin 28.4 pg (28.0-32.0); Mean Corpuscular Volume 86.1 fL (80.0-100.0); Monocytes % (auto) 14.5 % (0.0-12.0); Neutrophils # (auto) 9.6 10 ^3/uL (1.6-8.6); Neutrophils % (auto) 68.8 % (37.0-80.0); Nucleated Red Blood Cells % 0.1 %; Red Blood Cells 3.85 10^6/uL (4.0-5.20); Red Cell Distribution Width 12.5 % (11.8-14.3)
[2022-12-27 04:06] LABS: BUN/Creatinine Ratio 16.7 (10.0-20.0); Calcium 9.8 mg/dL (8.5-10.1); Potassium 3.1 mmol/L (3.5-5.1)
[2022-12-27] MEDS: LEVOTHYROXINE SODIUM 25 MCG TAB PO SCH (06:42)
[2022-12-27] MEDS ORDERED: POTASSIUM CHLORIDE 60 MEQ, LIDOCAINE 1% (LOCAL ANESTH.) 6 ML in SODIUM CHL 0.9% 500 ML IV ONE (08:00)
[2022-12-27] MEDS: AMIODARONE 450mg/250ml AE 250 ML IV SCH ×2 (08:45→23:45)
[2022-12-27] MEDS: ASPirin 81 mg TAB PO SCH (09:20)
[2022-12-27] MEDS: MAGNESIUM SULFATE 1GM/100ML 100 ML IV SCH ×3 (09:20→11:37)
[2022-12-27] MEDS: ENOXAPARIN SOD 100 MG/1 ML SYRINGE SC SCH ×2 (09:22→22:00)
[2022-12-27] MEDS: FUROSEMIDE 40 MG/4 ML VIAL IV SCH (09:22)
[2022-12-27] MEDS: NYSTATIN TOPICAL POWDER 15GM TOP SCH ×2 (09:23→22:00)
[2022-12-27] MEDS: FAMOTIDINE (10MG/ML) 2ML VL IV SCH ×2 (09:23→22:00)
[2022-12-27] MEDS ORDERED: IPRATROPIUM BROM 0.5 MG/2.5ML INH SOL NEB PRN (09:30)
[2022-12-27] MEDS ORDERED: ALBUTEROL SULF 2.5 MG/0.5ML(0.5%) NEB SOLN NEB PRN (09:30)
[2022-12-27] MEDS ORDERED: acetaZOLAMIDE SODIUM 500 MG VL IV ONE (09:30)
[2022-12-27] MEDS ORDERED: LACTULOSE 20Gm/30ML SOLN PO PRN (09:30)
[2022-12-27] MEDS: FUROSEMIDE 20 MG/2 ML VIAL IV SCH (10:00)
[2022-12-27] MEDS: DULoxetine HCL 30 MG CAP PO SCH ×2 (10:33→22:00)
[2022-12-27] MEDS: NOREPINEPHRINE 8 MG/250ML KIT 250 ML IV SCH (16:00)
[2022-12-27] MEDS: POTASSIUM CHL 20MEQ/100ML 100 ML IV SCH (18:45)
[2022-12-27 23:47] LABS: BUN/Creatinine Ratio 17.8 (10.0-20.0); Calcium 9.4 mg/dL (8.5-10.1); Potassium 3.6 mmol/L (3.5-5.1)
[2022-12-28] VITALS (26 sets, daily range): BP systolic 106–131; BP diastolic 45–90
[2022-12-28] MEDS: MEROPENEM 1GM IVPB 100 ML IV SCH ×3 (02:49→18:39)
[2022-12-28 04:17] LABS: Basophils # (auto) 0.1 10 ^3/uL (0-0.2); Basophils % (auto) 0.4 % (0.0-2.0); Eosinophils # (auto) 0.1 10 ^3/uL (0-0.8); Eosinophils % (auto) 1.1 % (0.0-7.0); Hematocrit 33.2 % (36.0-46.0); Hemoglobin 10.7 g/dL (12.2-16.2); Lymphocytes # (auto) 2.5 10 ^3/uL (0.4-5.4); Lymphocytes % (auto) 18.7 % (10.0-50.0); Mean Corpuscular Hemoglobin 28.5 pg (28.0-32.0); Mean Corpuscular Hgb Conc. 32.3 g/dL (32.0-36.0); Mean Corpuscular Volume 88.4 fL (80.0-100.0); Monocytes # (auto) 2.4 10 ^3/uL (0-1.3); Monocytes % (auto) 17.4 % (0.0-12.0); Neutrophils # (auto) 8.5 10 ^3/uL (1.6-8.6); Neutrophils % (auto) 62.4 % (37.0-80.0); Red Blood Cells 3.75 10^6/uL (4.0-5.20); Red Cell Distribution Width 12.9 % (11.8-14.3); White Blood Cell 13.6 10^3/uL (4.4-10.8)
[2022-12-28 04:35] LABS: Albumin 2.6 g/dL (3.4-5.0); Calcium 8.9 mg/dL (8.5-10.1); Potassium 3.5 mmol/L (3.5-5.1)
[2022-12-28 04:38] LABS: Bilirubin, Total 0.4 mg/dL (0.2-1.0); Total Protein 6.6 g/dL (6.4-8.2)
[2022-12-28] MEDS: METOPROLOL TARTRATE 1MG/1ML-5ML VIAL IV SCH ×2 (06:00)
[2022-12-28] MEDS ORDERED: MAGNESIUM SULFATE 1GM/100ML 100 ML IV ONE (07:15)
[2022-12-28] MEDS: FAMOTIDINE (10MG/ML) 2ML VL IV SCH ×2 (09:37→21:52)
[2022-12-28] MEDS: ASPirin 81 mg TAB PO SCH (09:38)
[2022-12-28] MEDS: DULoxetine HCL 30 MG CAP PO SCH ×2 (09:38→21:52)
[2022-12-28] MEDS: FUROSEMIDE 20 MG/2 ML VIAL IV SCH (09:38)
[2022-12-28] MEDS: ENOXAPARIN SOD 100 MG/1 ML SYRINGE SC SCH ×2 (09:38→21:51)
[2022-12-28] MEDS: NYSTATIN TOPICAL POWDER 15GM TOP SCH ×2 (09:40→21:53)
[2022-12-28] MEDS: LEVOTHYROXINE SODIUM 25 MCG TAB PO SCH (09:45)
[2022-12-28] MEDS: POTASSIUM CHL 20MEQ/100ML 100 ML IV SCH ×4 (10:16→14:01)
[2022-12-28] MEDS ORDERED: AMIODARONE HCL 200 MG TAB PO ONE (10:30)
[2022-12-28] MEDS: NOREPINEPHRINE 8 MG/250ML KIT 250 ML IV SCH (16:00)
[2022-12-28] MEDS: ACETAMINOPHEN 325 MG TAB PO PRN (20:14)
[2022-12-28] MEDS: GABAPENTIN 300 MG CAP PO SCH (21:52)
[2022-12-28] MEDS: AMIODARONE HCL 200 MG TAB PO SCH (21:53)
[2022-12-29] VITALS (13 sets, daily range): BP systolic 107–139; BP diastolic 45–78
[2022-12-29] MEDS: MEROPENEM 1GM IVPB 100 ML IV SCH ×3 (01:36→18:00)
[2022-12-29 05:00] LABS: Basophils # (auto) 0.1 10 ^3/uL (0-0.2); Basophils % (auto) 0.6 % (0.0-2.0); Eosinophils # (auto) 0.2 10 ^3/uL (0-0.8); Eosinophils % (auto) 1.6 % (0.0-7.0); Hematocrit 34.2 % (36.0-46.0); Hemoglobin 10.9 g/dL (12.2-16.2); Lymphocytes # (auto) 2.5 10 ^3/uL (0.4-5.4); Lymphocytes % (auto) 21.1 % (10.0-50.0); Mean Corpuscular Hemoglobin 27.8 pg (28.0-32.0); Mean Corpuscular Hgb Conc. 31.9 g/dL (32.0-36.0); Monocytes # (auto) 1.5 10 ^3/uL (0-1.3); Monocytes % (auto) 12.9 % (0.0-12.0); Neutrophils # (auto) 7.6 10 ^3/uL (1.6-8.6); Neutrophils % (auto) 63.8 % (37.0-80.0); Red Blood Cells 3.93 10^6/uL (4.0-5.20); Red Cell Distribution Width 12.9 % (11.8-14.3); White Blood Cell 11.9 10^3/uL (4.4-10.8)
[2022-12-29 05:17] LABS: BUN/Creatinine Ratio 23.2 (10.0-20.0); Calcium 9.5 mg/dL (8.5-10.1); Magnesium 1.8 mg/dL (1.6-2.6); Potassium 3.9 mmol/L (3.5-5.1)
[2022-12-29] MEDS: GABAPENTIN 300 MG CAP PO SCH ×3 (05:43→22:01)
[2022-12-29] MEDS: LEVOTHYROXINE SODIUM 25 MCG TAB PO SCH (06:36)
[2022-12-29] MEDS: NYSTATIN TOPICAL POWDER 15GM TOP SCH ×2 (10:00→22:00)
[2022-12-29] MEDS: AMIODARONE HCL 200 MG TAB PO SCH ×2 (10:27→22:02)
[2022-12-29] MEDS: DULoxetine HCL 30 MG CAP PO SCH ×2 (10:27→22:01)
[2022-12-29] MEDS: ASPirin 81 mg TAB PO SCH (10:27)
[2022-12-29] MEDS: ENOXAPARIN SOD 100 MG/1 ML SYRINGE SC SCH (10:30)
[2022-12-29] MEDS: FUROSEMIDE 20 MG/2 ML VIAL IV SCH (10:30)
[2022-12-29] MEDS: FAMOTIDINE (10MG/ML) 2ML VL IV SCH (10:30)
[2022-12-29] MEDS: ACETAMINOPHEN 325 MG TAB PO PRN (18:03)
[2022-12-29] MEDS: APIXABAN 5 MG TAB PO SCH (22:02)
[2022-12-29] MEDS: METOPROLOL TARTRATE 25 MG TAB PO SCH (22:02)
[2022-12-30] VITALS (12 sets, daily range): BP systolic 95–129; BP diastolic 53–109
[2022-12-30] MEDS: MEROPENEM 1GM IVPB 100 ML IV SCH ×3 (01:11→17:26)
[2022-12-30 04:54] LABS: Basophils # (auto) 0.1 10 ^3/uL (0-0.2); Eosinophils # (auto) 0.2 10 ^3/uL (0-0.8); Hematocrit 34.9 % (36.0-46.0); Monocytes # (auto) 1.4 10 ^3/uL (0-1.3)
[2022-12-30 04:56] LABS: Basophils % (auto) 0.6 % (0.0-2.0); Eosinophils % (auto) 1.6 % (0.0-7.0); Hemoglobin 11.2 g/dL (12.2-16.2); Lymphocytes # (auto) 2.6 10 ^3/uL (0.4-5.4); Lymphocytes % (auto) 24.6 % (10.0-50.0); Mean Corpuscular Hemoglobin 28.2 pg (28.0-32.0); Mean Corpuscular Hgb Conc. 32.1 g/dL (32.0-36.0); Mean Corpuscular Volume 87.8 fL (80.0-100.0); Monocytes % (auto) 12.9 % (0.0-12.0); Neutrophils # (auto) 6.4 10 ^3/uL (1.6-8.6); Neutrophils % (auto) 60.3 % (37.0-80.0); Red Blood Cells 3.98 10^6/uL (4.0-5.20); Red Cell Distribution Width 13.1 % (11.8-14.3); White Blood Cell 10.6 10^3/uL (4.4-10.8)
[2022-12-30 05:11] LABS: Calcium 9.8 mg/dL (8.5-10.1)
[2022-12-30 05:13] LABS: BUN/Creatinine Ratio 30.9 (10.0-20.0)
[2022-12-30] MEDS: GABAPENTIN 300 MG CAP PO SCH ×3 (07:15→21:13)
[2022-12-30] MEDS: LEVOTHYROXINE SODIUM 25 MCG TAB PO SCH (07:17)
[2022-12-30] MEDS: ACETAMINOPHEN 325 MG TAB PO PRN (07:38)
[2022-12-30] MEDS: NYSTATIN TOPICAL POWDER 15GM TOP SCH ×2 (10:00→21:13)
[2022-12-30] MEDS ORDERED: AMIODARONE HCL 200 MG TAB PO SCH (10:00)
[2022-12-30] MEDS: APIXABAN 5 MG TAB PO SCH ×2 (10:01→21:13)
[2022-12-30] MEDS: FUROSEMIDE 20 MG/2 ML VIAL IV SCH (10:01)
[2022-12-30] MEDS: DULoxetine HCL 30 MG CAP PO SCH ×2 (10:01→21:12)
[2022-12-30] MEDS: ASPirin 81 mg TAB PO SCH (10:01)
[2022-12-30] MEDS: AMIODARONE HCL 200 MG TAB PO SCH ×2 (10:02→21:12)
[2022-12-30] MEDS: METOPROLOL TARTRATE 25 MG TAB PO SCH (10:02)
[2022-12-31] MEDS: MEROPENEM 1GM IVPB 100 ML IV SCH ×3 (02:43→18:32)
[2022-12-31 05:00] VITALS: BP 115/86
[2022-12-31] MEDS: GABAPENTIN 300 MG CAP PO SCH ×3 (05:23→21:57)
[2022-12-31] MEDS: LEVOTHYROXINE SODIUM 25 MCG TAB PO SCH (05:23)
[2022-12-31 08:40] VITALS: BP 124/68
[2022-12-31] MEDS ORDERED: AMIODARONE HCL 200 MG TAB PO SCH (10:00)
[2022-12-31] MEDS: FUROSEMIDE 20 MG/2 ML VIAL IV SCH (10:48)
[2022-12-31] MEDS: DULoxetine HCL 30 MG CAP PO SCH ×2 (10:49→21:57)
[2022-12-31] MEDS: APIXABAN 5 MG TAB PO SCH ×2 (10:49→21:58)
[2022-12-31] MEDS: ASPirin 81 mg TAB PO SCH (10:49)
[2022-12-31] MEDS: AMIODARONE HCL 200 MG TAB PO SCH ×2 (10:49→21:57)
[2022-12-31] MEDS: ACETAMINOPHEN 325 MG TAB PO PRN (10:49)
[2022-12-31] MEDS: METOPROLOL SUCCINATE XL 50 MG TAB PO SCH (10:50)
[2022-12-31 12:35] VITALS: BP 125/76
[2022-12-31 16:30] VITALS: BP 112/75
[2022-12-31] MEDS: NYSTATIN TOPICAL POWDER 15GM TOP SCH (17:51)
[2022-12-31 22:00] VITALS: BP 124/64
[2023-01-01] MEDS: NYSTATIN TOPICAL POWDER 15GM TOP SCH ×3 (01:18→22:45)
[2023-01-01] MEDS: MEROPENEM 1GM IVPB 100 ML IV SCH ×3 (01:34→18:27)
[2023-01-01 05:00] VITALS: BP 114/58
[2023-01-01] MEDS: GABAPENTIN 300 MG CAP PO SCH ×3 (06:18→21:55)
[2023-01-01] MEDS: LEVOTHYROXINE SODIUM 25 MCG TAB PO SCH (06:18)
[2023-01-01 06:22] LABS: Hemoglobin 12.1 g/dL (12.2-16.2); Monocytes # (auto) 1.5 10 ^3/uL (0-1.3); Red Cell Distribution Width 13.1 % (11.8-14.3)
[2023-01-01 06:24] LABS: BUN/Creatinine Ratio 35.2 (10.0-20.0); Calcium 9.6 mg/dL (8.5-10.1); Potassium 3.9 mmol/L (3.5-5.1)
[2023-01-01 06:25] LABS: Basophils # (auto) 0 10 ^3/uL (0-0.2); Basophils % (auto) 0.3 % (0.0-2.0); Eosinophils # (auto) 0.2 10 ^3/uL (0-0.8); Eosinophils % (auto) 1.1 % (0.0-7.0); Hematocrit 37.6 % (36.0-46.0); Lymphocytes # (auto) 3.1 10 ^3/uL (0.4-5.4); Lymphocytes % (auto) 22.6 % (10.0-50.0); Mean Corpuscular Hgb Conc. 32.3 g/dL (32.0-36.0); Mean Corpuscular Volume 86.9 fL (80.0-100.0); Monocytes % (auto) 10.6 % (0.0-12.0); Neutrophils # (auto) 9.1 10 ^3/uL (1.6-8.6); Neutrophils % (auto) 65.4 % (37.0-80.0); Nucleated Red Blood Cells % 0.2 %; Red Blood Cells 4.32 10^6/uL (4.0-5.20); White Blood Cell 13.9 10^3/uL (4.4-10.8)
[2023-01-01 08:50] VITALS: BP 123/78
[2023-01-01] MEDS: ASPirin 81 mg TAB PO SCH (10:25)
[2023-01-01] MEDS: APIXABAN 5 MG TAB PO SCH ×2 (10:25→21:56)
[2023-01-01] MEDS: AMIODARONE HCL 200 MG TAB PO SCH ×2 (10:25→21:56)
[2023-01-01] MEDS: FUROSEMIDE 20 MG/2 ML VIAL IV SCH (10:25)
[2023-01-01] MEDS: DULoxetine HCL 30 MG CAP PO SCH ×2 (10:25→21:55)
[2023-01-01] MEDS: METOPROLOL SUCCINATE XL 50 MG TAB PO SCH (10:27)
[2023-01-01] MEDS: ACETAMINOPHEN 325 MG TAB PO PRN (11:28)
[2023-01-01 12:28] VITALS: BP 118/82
[2023-01-01 17:01] VITALS: BP 114/77
[2023-01-01 22:00] VITALS: BP 133/79
[2023-01-02] MEDS: MEROPENEM 1GM IVPB 100 ML IV SCH ×3 (01:37→17:32)
[2023-01-02 04:59] VITALS: BP 126/72
[2023-01-02] MEDS: GABAPENTIN 300 MG CAP PO SCH ×3 (06:43→21:25)
[2023-01-02] MEDS: LEVOTHYROXINE SODIUM 25 MCG TAB PO SCH (06:43)
[2023-01-02 08:42] VITALS: BP 130/71
[2023-01-02] MEDS: DULoxetine HCL 30 MG CAP PO SCH ×2 (09:59→21:26)
[2023-01-02] MEDS: FUROSEMIDE 20 MG/2 ML VIAL IV SCH (09:59)
[2023-01-02] MEDS: APIXABAN 5 MG TAB PO SCH ×2 (09:59→21:25)
[2023-01-02] MEDS: METOPROLOL SUCCINATE XL 50 MG TAB PO SCH (10:00)
[2023-01-02] MEDS: AMIODARONE HCL 200 MG TAB PO SCH ×2 (10:00→21:25)
[2023-01-02] MEDS: ASPirin 81 mg TAB PO SCH (10:00)
[2023-01-02 12:49] VITALS: BP 101/76
[2023-01-02] MEDS: ACETAMINOPHEN 325 MG TAB PO PRN (14:24)
[2023-01-02] MEDS: NYSTATIN TOPICAL POWDER 15GM TOP SCH ×2 (14:24→21:26)
[2023-01-02 17:00] VITALS: BP 109/72
[2023-01-02 22:00] VITALS: BP 110/73
[2023-01-03] MEDS: MEROPENEM 1GM IVPB 100 ML IV SCH ×3 (01:30→18:00)
[2023-01-03 05:00] VITALS: BP 115/74
[2023-01-03] MEDS: LEVOTHYROXINE SODIUM 25 MCG TAB PO SCH (06:07)
[2023-01-03] MEDS: GABAPENTIN 300 MG CAP PO SCH ×2 (06:07→15:50)
[2023-01-03 09:12] VITALS: BP 96/71
[2023-01-03] MEDS: FUROSEMIDE 20 MG/2 ML VIAL IV SCH (09:51)
[2023-01-03] MEDS: APIXABAN 5 MG TAB PO SCH (09:52)
[2023-01-03] MEDS: DULoxetine HCL 30 MG CAP PO SCH (09:52)
[2023-01-03] MEDS: METOPROLOL SUCCINATE XL 50 MG TAB PO SCH (09:53)
[2023-01-03] MEDS: AMIODARONE HCL 200 MG TAB PO SCH (09:54)
[2023-01-03] MEDS: ASPirin 81 mg TAB PO SCH (09:59)
[2023-01-03] MEDS: NYSTATIN TOPICAL POWDER 15GM TOP SCH (10:04)
[2023-01-03 13:00] VITALS: BP 117/83
[2023-01-03 15:18] VITALS: BP 97/71
[2023-01-03 17:00] VITALS: BP 109/70
== END 2023-01-03 17:30 | DRG 870 ==
LOC: EDBD 18:16 → ER 18:18 → OVERFLOW 23:22 → ICU WEST 12-19 15:18 → DOU IN ICU 12-28 19:44 → TELE-WESTW 12-30 11:07
PROVIDERS: ADMIT Nurse Practitioner Family; ATTEND Family Medicine
PROC: 5A1955Z Respiratory Ventilation, Greater than 96 Consecutive Hours (ICD-10-PCS; 2022-12-18)
PROC: 0BH17EZ Insertion of Endotracheal Airway into Trachea, Via Natural or Artificial Opening (ICD-10-PCS; 2022-12-18)
PROC: 02HV33Z Insertion of Infusion Device into Superior Vena Cava, Percutaneous Approach (ICD-10-PCS; principal; 2022-12-20)
PROC: B548ZZA Ultrasonography of Superior Vena Cava, Guidance (ICD-10-PCS; 2022-12-20)
PROC: 5A2204Z Restoration of Cardiac Rhythm, Single (ICD-10-PCS; 2022-12-20)
PROC: 4A133B1 Monitoring of Arterial Pressure, Peripheral, Percutaneous Approach (ICD-10-PCS; 2022-12-22)
PROC: B211YZZ Fluoroscopy of Multiple Coronary Arteries using Other Contrast (ICD-10-PCS; 2022-12-22)
PROC: B215YZZ Fluoroscopy of Left Heart using Other Contrast (ICD-10-PCS; 2022-12-22)
PROC: 4A023N7 Measurement of Cardiac Sampling and Pressure, Left Heart, Percutaneous Approach (ICD-10-PCS; 2022-12-22)
PROC: B41FYZZ Fluoroscopy of Right Lower Extremity Arteries using Other Contrast (ICD-10-PCS; 2022-12-22)
DX: A41.51 Sepsis due to Escherichia coli [E. coli] (principal); E43 Unspecified severe protein-calorie malnutrition; I21.4 Non-ST elevation (NSTEMI) myocardial infarction; J96.00 Acute respiratory failure, unspecified whether with hypoxia or hypercapnia; R65.21 Severe sepsis with septic shock; F23 Brief psychotic disorder; I47.1 Supraventricular tachycardia; N39.0 Urinary tract infection, site not specified; D68.69 Other thrombophilia; I50.20 Unspecified systolic (congestive) heart failure; I25.10 Atherosclerotic heart disease of native coronary artery without angina pectoris; E83.42 Hypomagnesemia; Z20.822 Contact with and (suspected) exposure to COVID-19; E66.9 Obesity, unspecified; I11.0 Hypertensive heart disease with heart failure; E03.9 Hypothyroidism, unspecified; F32.A Depression, unspecified; F41.9 Anxiety disorder, unspecified; Z79.899 Other long term (current) drug therapy; Z79.891 Long term (current) use of opiate analgesic; Z68.29 Body mass index [BMI] 29.0-29.9, adult
CPT/HCPCS: 36415; 36600; 70450; 71045; 71250; 72125; 73090; 73130; 74176; 80048; 80053; 80061; 80320; 81001; 82550; 82805; 82962; 83036; 83605; 83735; 83880; 84100; 84443; 84484; 85025; 85379; 85610; 85730; 87040; 87070; 87081; 87086; 87205; 87426; 92961; 93005; 93306; 93458; 94002; 94003; 94640; 96372; 96374; 96375; 97110; 97116; 97163; 97530; 99152; G0378; J0153; J0696; J2001; J2185; J2250; J3480; J3490; J7060; P9047; Q9967

== ENCOUNTER 2023-04-29 19:39 | Inpatient (IN) | payer MEDICARE ==
[~2023-04-29] VITALS: Ht 162.6 cm; Wt 70.2 kg
[~2023-04-29 19:39] MED LIST changes: -BACL10TA PO; -BUPR100T16 PO; +BUPR150T8 PO; -MONT-8 PO; +OXYB5SOL PO; -PANT40T
[2023-04-29] MEDS ORDERED: IPRATROPIUM BROM 0.5 MG/2.5ML INH SOL HHN ONE (20:15)
[2023-04-29] MEDS ORDERED: ALBUTEROL SULF 2.5 MG/0.5ML(0.5%) NEB SOLN HHN ONE (20:15)
[2023-04-29] MEDS ORDERED: levoFLOXacin 500MG 100 ML IV ONE (20:15)
[2023-04-29] MEDS ORDERED: methylPREDNISolone SOD SUCC 125 MG/2 ML VL IV ONE (20:15)
[2023-04-29] MEDS ORDERED: ALBUTEROL MEDNEB 2.5 mg/3ml NEB ONE (20:19)
[2023-04-29 21:08] LABS: Basophils # (auto) 0.1 10 ^3/uL (0-0.2); Basophils % (auto) 0.6 % (0.0-2.0); Eosinophils # (auto) 0.1 10 ^3/uL (0-0.8); Hemoglobin 9.8 g/dL (12.2-16.2); White Blood Cell 12.1 10^3/uL (4.4-10.8)
[2023-04-29 21:09] LABS: Hematocrit 31.2 % (36.0-46.0); Lymphocytes # (auto) 1.8 10 ^3/uL (0.4-5.4); Lymphocytes % (auto) 15.1 % (10.0-50.0); Mean Corpuscular Hemoglobin 28.5 pg (28.0-32.0); Mean Corpuscular Hgb Conc. 31.4 g/dL (32.0-36.0); Mean Corpuscular Volume 90.8 fL (80.0-100.0); Monocytes # (auto) 1.3 10 ^3/uL (0-1.3); Monocytes % (auto) 10.9 % (0.0-12.0); Neutrophils # (auto) 8.7 10 ^3/uL (1.6-8.6); Neutrophils % (auto) 72.4 % (37.0-80.0); Red Blood Cells 3.44 10^6/uL (4.0-5.20); Red Cell Distribution Width 15.6 % (11.8-14.3)
[2023-04-29 21:30] LABS: Alanine Aminotransferase 13 U/L (7-40); Albumin 3.9 g/dL (3.2-4.8); Alkaline Phosphatase 91 U/L (46-116); Anion Gap 7 (5-15); Aspartate Aminotransferase 28 U/L (13-40); BUN/Creatinine Ratio 18.9 (10.0-20.0); Bilirubin, Total < 0.2 mg/dL (0.2-1.0); Blood Urea Nitrogen 17 mg/dL (9-23); Calcium 9.1 mg/dL (8.7-10.4); Carbon Dioxide 30 mmol/L (20-30); Chloride 101 mmol/L (98-107); Glucose 90 mg/dL (74-106); Magnesium 1.4 mg/dL (1.6-2.6); Potassium 3.7 mmol/L (3.5-5.1); Sodium 138 mmol/L (136-145); Total Protein 7.1 g/dL (5.7-8.2)
[2023-04-29 21:49] VITALS: PULSE 90; RESP 28; O2SAT 92
[2023-04-29] MEDS ORDERED: DOCUSATE SOD 100 MG CAP PO PRN (22:45)
[2023-04-29] MEDS ORDERED: ACETAMINOPHEN 325 MG TAB PO PRN (22:45)
[2023-04-29] MEDS ORDERED: ASPirin-EC 325mg tab PO ONE (22:45)
[2023-04-29] MEDS ORDERED: HYDROcodone-ACET 5/325MG TAB PO PRN (22:45)
[2023-04-29 23:17] VITALS: BP 106/67; PULSE 87; RESP 22; TEMP 98.9; O2SAT 95
[2023-04-30] VITALS (9 sets, daily range): PULSE 88–112; RESP 18–29; O2SAT 92–100
[2023-04-30] MEDS ORDERED: NITROGLYCERIN 0.4 MG SL TAB SL PRN
[2023-04-30] MEDS ORDERED: LACTATED RINGER'S 1,000 ML IV ONE (00:30)
[2023-04-30] MEDS ORDERED: ALBUTEROL MEDNEB 2.5 mg/3ml NEB ONE ×4 (00:36→18:42)
[2023-04-30] MEDS ORDERED: IPRATROPIUM BROM 0.5 MG/2.5ML INH SOL ONE ×2 (00:37→07:06)
[2023-04-30] MEDS: IPRATROPIUM BROM 0.5 MG/2.5ML INH SOL NEB PRN ×3 (00:55→18:50)
[2023-04-30] MEDS: ALBUTEROL SULF 2.5 MG/0.5ML(0.5%) NEB SOLN NEB PRN ×2 (00:55→08:28)
[2023-04-30 01:19] LABS: COVID19 ANTIGEN SOFIA FIA NEGATIVE (NEGATIVE); Rapid Influenza A Negative (Negative); Rapid Influenza B Negative (Negative)
[2023-04-30 06:27] LABS: Basophils # (auto) 0 10 ^3/uL (0-0.2); Eosinophils # (auto) 0 10 ^3/uL (0-0.8); Lymphocytes # (auto) 0.5 10 ^3/uL (0.4-5.4); Lymphocytes % (auto) 4.3 % (10.0-50.0); Monocytes # (auto) 0.2 10 ^3/uL (0-1.3); Monocytes % (auto) 1.6 % (0.0-12.0); Red Blood Cells 3.27 10^6/uL (4.0-5.20)
[2023-04-30 06:30] LABS: Basophils % (auto) 0.3 % (0.0-2.0); Hematocrit 29.2 % (36.0-46.0); Hemoglobin 9.2 g/dL (12.2-16.2); Mean Corpuscular Hemoglobin 28.3 pg (28.0-32.0); Mean Corpuscular Hgb Conc. 31.7 g/dL (32.0-36.0); Mean Corpuscular Volume 89.2 fL (80.0-100.0); Neutrophils # (auto) 10.2 10 ^3/uL (1.6-8.6); Neutrophils % (auto) 93.8 % (37.0-80.0); Red Cell Distribution Width 15.5 % (11.8-14.3); White Blood Cell 10.8 10^3/uL (4.4-10.8)
[2023-04-30 06:46] LABS: Alanine Aminotransferase 15 U/L (7-40); Albumin 3.4 g/dL (3.2-4.8); Alkaline Phosphatase 84 U/L (46-116); Anion Gap 7 (5-15); Aspartate Aminotransferase 27 U/L (13-40); Bilirubin, Total 0.2 mg/dL (0.2-1.0); Blood Urea Nitrogen 21 mg/dL (9-23); Calcium 8.8 mg/dL (8.7-10.4); Carbon Dioxide 29 mmol/L (20-30); Chloride 102 mmol/L (98-107); Glucose 145 mg/dL (74-106); Potassium 4.9 mmol/L (3.5-5.1); Sodium 138 mmol/L (136-145); Total Protein 5.9 g/dL (5.7-8.2)
[2023-04-30] MEDS: methylPREDNISolone SOD SUCC 40 MG/ML VL IV SCH ×3 (06:50→23:08)
[2023-04-30 06:51] LABS: Urine Bacteria NONE SEEN /hpf (None Seen); Urine Blood Negative /uL (Negative); Urine Clarity Clear (Clear); Urine Color Yellow (Yellow); Urine Hyaline Cast MOD /lpf (0 - 2); Urine Mucus FEW (None Seen); Urine Protein, UAD 1+ (Negative); Urine Specific Gravity 1.026 (1.001-1.035); Urine Urobilinogen Normal (Negative); Urine WBC 2 /hpf (0 - 5); Urine pH 5.5 (5.0-8.0)
[2023-04-30] MEDS: SODIUM CHLOR 0.9% PF (SALINE LOCK) 10ML VIAL/SYR IV SCH ×3 (06:51→23:08)
[2023-04-30] MEDS: LEVOTHYROXINE SODIUM 25 MCG TAB PO SCH (06:51)
[2023-04-30] MEDS ORDERED: SODIUM CHLORIDE 0.9% 500 ML IV ONE (07:00)
[2023-04-30 07:05] LABS: BUN/Creatinine Ratio 29.2 (10.0-20.0)
[2023-04-30] MEDS: FUROSEMIDE 20 MG/2 ML VIAL IV SCH (10:00)
[2023-04-30] MEDS: ASPirin 81 mg TAB PO SCH (10:00)
[2023-04-30] MEDS: FAMOTIDINE (10MG/ML) 2ML VL IV SCH ×2 (11:26→23:07)
[2023-04-30] MEDS: ONDANSETRON HCL 4 MG/2 ML VIAL IV PRN ×2 (13:30→18:35)
[2023-04-30] MEDS: MORPHINE SULFATE INJ 2 MG/ml SYRG IV PRN (13:31)
[2023-04-30] MEDS: LORazepam 2MG/ML-1ML VIAL IV PRN (18:35)
[2023-04-30 19:05] LABS: INR 1.09 (0.9-1.15); Partial Thromboplastin Time 32.4 SEC (24.5-34.5); Prothrombin Time 11.4 sec (9.3-11.8)
[2023-04-30] MEDS: levoFLOXacin 500MG 100 ML IV SCH (23:07)
[2023-05-01] VITALS (8 sets, daily range): PULSE 91–102; RESP 18–28; O2SAT 95–100
[2023-05-01] MEDS ORDERED: ALBUTEROL MEDNEB 2.5 mg/3ml NEB ONE ×3 (01:34→18:01)
[2023-05-01] MEDS: IPRATROPIUM BROM 0.5 MG/2.5ML INH SOL NEB PRN ×3 (01:37→18:20)
[2023-05-01] MEDS: LORazepam 2MG/ML-1ML VIAL IV PRN ×4 (02:27→21:16)
[2023-05-01] MEDS: methylPREDNISolone SOD SUCC 40 MG/ML VL IV SCH ×3 (06:35→21:51)
[2023-05-01] MEDS: LEVOTHYROXINE SODIUM 25 MCG TAB PO SCH (06:36)
[2023-05-01] MEDS: SODIUM CHLOR 0.9% PF (SALINE LOCK) 10ML VIAL/SYR IV SCH ×3 (06:36→21:51)
[2023-05-01] MEDS: ALBUTEROL SULF 2.5 MG/0.5ML(0.5%) NEB SOLN NEB PRN (09:24)
[2023-05-01] MEDS: ASPirin 81 mg TAB PO SCH (09:39)
[2023-05-01] MEDS: FAMOTIDINE (10MG/ML) 2ML VL IV SCH ×2 (10:27→21:51)
[2023-05-01] MEDS: FUROSEMIDE 20 MG/2 ML VIAL IV SCH (10:28)
[2023-05-01] MEDS: MORPHINE SULFATE INJ 2 MG/ml SYRG IV PRN ×3 (11:22→23:31)
[2023-05-01] MEDS ORDERED: LORazepam 2MG/ML-1ML VIAL IV PRN (21:00)
[2023-05-01] MEDS: levoFLOXacin 500MG 100 ML IV SCH (21:51)
[2023-05-01 22:15] LABS: Triglycerides 88 mg/dL (< 150)
[2023-05-01 22:16] LABS: LDL Cholesterol 93 mg/dL (< 100)
[2023-05-01 22:17] LABS: Cholesterol 175 mg/dL (< 200); HDL Cholesterol 55 mg/dL (40-59)
[2023-05-02] MEDS: LORazepam 2MG/ML-1ML VIAL IV PRN ×3 (03:38→18:34)
[2023-05-02] MEDS: MORPHINE SULFATE INJ 2 MG/ml SYRG IV PRN ×3 (04:35→22:25)
[2023-05-02] MEDS: methylPREDNISolone SOD SUCC 40 MG/ML VL IV SCH ×3 (06:03→22:44)
[2023-05-02] MEDS: SODIUM CHLOR 0.9% PF (SALINE LOCK) 10ML VIAL/SYR IV SCH ×3 (06:03→22:44)
[2023-05-02] MEDS: LEVOTHYROXINE SODIUM 25 MCG TAB PO SCH (06:03)
[2023-05-02] MEDS ORDERED: ALBUTEROL MEDNEB 2.5 mg/3ml NEB ONE (06:26)
[2023-05-02] MEDS: ALBUTEROL SULF 2.5 MG/0.5ML(0.5%) NEB SOLN NEB PRN (06:35)
[2023-05-02 07:22] LABS: Base Excess 0.5 mmol/L (-2.0-2.0)
[2023-05-02 07:35] LABS: Hemoglobin 9.1 g/dL (12.2-16.2)
[2023-05-02 07:36] LABS: Hematocrit 28.9 % (36.0-46.0); Mean Corpuscular Hemoglobin 27.6 pg (28.0-32.0); Mean Corpuscular Hgb Conc. 31.4 g/dL (32.0-36.0); Mean Corpuscular Volume 87.8 fL (80.0-100.0); Red Blood Cells 3.29 10^6/uL (4.0-5.20); Red Cell Distribution Width 15.4 % (11.8-14.3); White Blood Cell 13.9 10^3/uL (4.4-10.8)
[2023-05-02 07:40] LABS: Band Neutrophils % (manual) 0; Basophils % (manual) 0 (0.0-2.0); Blast Cells 0; Eosinophils % (manual) 0 (0-7); Metamyelocytes % 0; Myelocytes % 0; Promyelocytes % 0; Reactive Lymphocytes 0
[2023-05-02 07:42] LABS: Chloride 105 mmol/L (98-107); Potassium 4.1 mmol/L (3.5-5.1); Sodium 142 mmol/L (136-145)
[2023-05-02 07:43] LABS: Anion Gap 8 (5-15); Calcium 9.4 mg/dL (8.5-10.1); Carbon Dioxide 29 mmol/L (20-30)
[2023-05-02 07:48] LABS: BUN/Creatinine Ratio 31.3 (10.0-20.0); Blood Urea Nitrogen 26 mg/dL (9-23); Glucose 123 mg/dL (74-106)
[2023-05-02 07:55] VITALS: O2SAT 97
[2023-05-02] MEDS: FUROSEMIDE 20 MG/2 ML VIAL IV SCH ×2 (08:01→18:15)
[2023-05-02] MEDS ORDERED: cefTRIAXone 1GM/50ML D5W 50 ML IV SCH (09:00)
[2023-05-02] MEDS: ASPirin 81 mg TAB PO SCH (10:00)
[2023-05-02] MEDS: FAMOTIDINE (10MG/ML) 2ML VL IV SCH ×2 (10:03→22:44)
[2023-05-02 11:52] LABS: Folate (Folic Acid) 11.45 ng/mL (>5.38)
[2023-05-02 13:28] LABS: Platelet Estimate Increased
[2023-05-02 13:32] LABS: Hypersegmented Neutrophils Present; Lymphocytes % (manual) 1 (10.0-50.0); Monocytes % (manual) 2 (0-12)
[2023-05-02] MEDS: PIPERACILLIN-TAZOB 3.375GM 100 ML IV SCH ×2 (14:03→22:24)
[2023-05-02] MEDS: ONDANSETRON HCL 4 MG/2 ML VIAL IV PRN (14:21)
[2023-05-02 20:00] VITALS: O2SAT 94
[2023-05-02 20:10] VITALS: PULSE 103; RESP 26; O2SAT 96
[2023-05-02 23:12] VITALS: BP 146/89; PULSE 110; RESP 24; O2SAT 96
[2023-05-03] MEDS: SODIUM CHLOR 0.9% PF (SALINE LOCK) 10ML VIAL/SYR IV SCH ×3 (06:00→22:00)
[2023-05-03] MEDS: PIPERACILLIN-TAZOB 3.375GM 100 ML IV SCH ×3 (06:00→22:00)
[2023-05-03] MEDS: FUROSEMIDE 20 MG/2 ML VIAL IV SCH ×2 (06:18→17:55)
[2023-05-03] MEDS: methylPREDNISolone SOD SUCC 40 MG/ML VL IV SCH ×3 (06:18→22:00)
[2023-05-03] MEDS: LEVOTHYROXINE SODIUM 25 MCG TAB PO SCH (07:00)
[2023-05-03] MEDS: MORPHINE SULFATE INJ 2 MG/ml SYRG IV PRN ×3 (07:43→21:16)
[2023-05-03 08:06] VITALS: PULSE 110; O2SAT 91
[2023-05-03] MEDS: ASPirin 81 mg TAB PO SCH (09:03)
[2023-05-03 09:04] VITALS: PULSE 104; RESP 28; O2SAT 96
[2023-05-03] MEDS: ALBUTEROL SULF 2.5 MG/0.5ML(0.5%) NEB SOLN NEB PRN (09:04)
[2023-05-03] MEDS: IPRATROPIUM BROM 0.5 MG/2.5ML INH SOL NEB PRN (09:04)
[2023-05-03 09:05] VITALS: O2SAT 94
[2023-05-03 09:06] VITALS: O2SAT 94
[2023-05-03 09:14] VITALS: PULSE 102; RESP 20; O2SAT 100
[2023-05-03] MEDS: FAMOTIDINE (10MG/ML) 2ML VL IV SCH ×2 (09:33→22:00)
[2023-05-03] MEDS: LORazepam 2MG/ML-1ML VIAL IV PRN ×3 (09:57→23:54)
[2023-05-03] MEDS ORDERED: CYANOCOBALAMIN (B-12) 1000 MCG/1 ML VIAL IM ONE (10:00)
[2023-05-03] MEDS: HALOPERIDOL LACTATE 5 MG/ML INJ VIAL IM PRN ×2 (12:26→19:53)
[2023-05-03 18:39] VITALS: O2SAT 98
[2023-05-04] VITALS (22 sets, daily range): BP systolic 109–169; BP diastolic 72–123; PULSE 90–122; RESP 16–32; TEMP 96–97.9; O2SAT 88–99
[2023-05-04] MEDS: HALOPERIDOL LACTATE 5 MG/ML INJ VIAL IM PRN (03:06)
[2023-05-04] MEDS: methylPREDNISolone SOD SUCC 40 MG/ML VL IV SCH ×3 (06:00→22:18)
[2023-05-04] MEDS: PIPERACILLIN-TAZOB 3.375GM 100 ML IV SCH ×3 (06:00→22:18)
[2023-05-04] MEDS: SODIUM CHLOR 0.9% PF (SALINE LOCK) 10ML VIAL/SYR IV SCH ×3 (06:00→22:18)
[2023-05-04] MEDS: FUROSEMIDE 20 MG/2 ML VIAL IV SCH ×2 (06:00→17:46)
[2023-05-04] MEDS: LORazepam 2MG/ML-1ML VIAL IV PRN ×2 (06:26→17:29)
[2023-05-04] MEDS: LEVOTHYROXINE SODIUM 25 MCG TAB PO SCH (07:17)
[2023-05-04] MEDS: MORPHINE SULFATE INJ 2 MG/ml SYRG IV PRN ×3 (08:03→22:24)
[2023-05-04] MEDS: ASPirin 81 mg TAB PO SCH (10:00)
[2023-05-04] MEDS: CYANOCOBALAMIN 500 MCG TAB PO SCH (10:00)
[2023-05-04] MEDS: FAMOTIDINE (10MG/ML) 2ML VL IV SCH ×2 (10:47→22:18)
[2023-05-04 11:55] LABS: Basophils # (auto) 0 10 ^3/uL (0-0.2); Basophils % (auto) 0.1 % (0.0-2.0); Eosinophils # (auto) 0 10 ^3/uL (0-0.8); Hematocrit 34.8 % (36.0-46.0); Hemoglobin 11.2 g/dL (12.2-16.2); Lymphocytes # (auto) 0.4 10 ^3/uL (0.4-5.4); Lymphocytes % (auto) 3.2 % (10.0-50.0); Mean Corpuscular Hemoglobin 28.1 pg (28.0-32.0); Mean Corpuscular Hgb Conc. 32.1 g/dL (32.0-36.0); Mean Corpuscular Volume 87.4 fL (80.0-100.0); Monocytes # (auto) 0.7 10 ^3/uL (0-1.3); Monocytes % (auto) 5.6 % (0.0-12.0); Neutrophils # (auto) 10.6 10 ^3/uL (1.6-8.6); Neutrophils % (auto) 91.1 % (37.0-80.0); Red Blood Cells 3.98 10^6/uL (4.0-5.20); Red Cell Distribution Width 15.9 % (11.8-14.3); White Blood Cell 11.6 10^3/uL (4.4-10.8)
[2023-05-04 12:30] LABS: Alanine Aminotransferase 24 U/L (7-40); Albumin 3.8 g/dL (3.2-4.8); Alkaline Phosphatase 89 U/L (46-116); Anion Gap 7 (5-15); Aspartate Aminotransferase 32 U/L (13-40); BUN/Creatinine Ratio 30.6 (10.0-20.0); Bilirubin, Total 0.3 mg/dL (0.2-1.0); Blood Urea Nitrogen 34 mg/dL (9-23); Calcium 9.3 mg/dL (8.7-10.4); Carbon Dioxide 38 mmol/L (20-30); Chloride 103 mmol/L (98-107); Glucose 159 mg/dL (74-106); Potassium 3.6 mmol/L (3.5-5.1); Total Protein 6.6 g/dL (5.7-8.2)
[2023-05-04 12:31] LABS: Sodium 148 mmol/L (136-145)
[2023-05-04] MEDS: D5W/SOD CHL 0.45% 1,000 ML IV SCH (16:12)
[2023-05-04] MEDS ORDERED: hydrALAZINE HCL 20 MG/ML VL IV PRN (18:30)
[2023-05-05] VITALS (22 sets, daily range): BP systolic 107–148; BP diastolic 71–100; PULSE 92–119; RESP 18–29; TEMP 96.8–98.2; O2SAT 86–100
[2023-05-05] MEDS: MORPHINE SULFATE INJ 2 MG/ml SYRG IV PRN ×4 (03:28→18:18)
[2023-05-05] MEDS: methylPREDNISolone SOD SUCC 40 MG/ML VL IV SCH ×3 (06:54→21:06)
[2023-05-05] MEDS: PIPERACILLIN-TAZOB 3.375GM 100 ML IV SCH ×3 (06:56→21:07)
[2023-05-05] MEDS: FUROSEMIDE 20 MG/2 ML VIAL IV SCH ×2 (06:56→18:18)
[2023-05-05] MEDS: SODIUM CHLOR 0.9% PF (SALINE LOCK) 10ML VIAL/SYR IV SCH ×3 (06:57→21:06)
[2023-05-05] MEDS: LEVOTHYROXINE SODIUM 25 MCG TAB PO SCH (07:00)
[2023-05-05] MEDS: D5W/SOD CHL 0.45% 1,000 ML IV SCH ×3 (09:16→14:28)
[2023-05-05] MEDS: CYANOCOBALAMIN 500 MCG TAB PO SCH (09:59)
[2023-05-05] MEDS: ASPirin 81 mg TAB PO SCH (09:59)
[2023-05-05] MEDS: FAMOTIDINE (10MG/ML) 2ML VL IV SCH ×2 (10:04→21:06)
[2023-05-05 14:10] LABS: INR 1.19 (0.9-1.15); Prothrombin Time 12.4 sec (9.3-11.8)
[2023-05-05] MEDS: LORazepam 2MG/ML-1ML VIAL IV PRN (14:17)
[2023-05-06] VITALS (23 sets, daily range): BP systolic 100–157; BP diastolic 64–98; PULSE 89–114; RESP 15–24; TEMP 97.6–98.4; O2SAT 80–99
[2023-05-06] MEDS: MORPHINE SULFATE INJ 2 MG/ml SYRG IV PRN ×2 (00:44→10:34)
[2023-05-06] MEDS: D5W/SOD CHL 0.45% 1,000 ML IV SCH ×2 (01:53→18:03)
[2023-05-06] MEDS: SODIUM CHLOR 0.9% PF (SALINE LOCK) 10ML VIAL/SYR IV SCH ×4 (05:50→21:54)
[2023-05-06] MEDS: LEVOTHYROXINE SODIUM 25 MCG TAB PO SCH (05:50)
[2023-05-06] MEDS: FUROSEMIDE 20 MG/2 ML VIAL IV SCH ×2 (05:50→18:03)
[2023-05-06] MEDS: PIPERACILLIN-TAZOB 3.375GM 100 ML IV SCH ×3 (05:51→21:53)
[2023-05-06] MEDS: methylPREDNISolone SOD SUCC 40 MG/ML VL IV SCH (05:52)
[2023-05-06] MEDS: ALBUTEROL SULF 2.5 MG/0.5ML(0.5%) NEB SOLN NEB PRN ×2 (06:35→10:54)
[2023-05-06] MEDS: IPRATROPIUM BROM 0.5 MG/2.5ML INH SOL NEB PRN ×2 (06:35→10:54)
[2023-05-06 07:51] LABS: Base Excess 5.8 mmol/L (-2.0-2.0)
[2023-05-06 08:31] LABS: Eosinophils # (auto) 0 10 ^3/uL (0-0.8); Lymphocytes # (auto) 0.2 10 ^3/uL (0.4-5.4); Red Blood Cells 4.54 10^6/uL (4.0-5.20)
[2023-05-06 08:34] LABS: Basophils # (auto) 0.1 10 ^3/uL (0-0.2); Basophils % (auto) 0.7 % (0.0-2.0); Hemoglobin 12.5 g/dL (12.2-16.2); Lymphocytes % (auto) 1.2 % (10.0-50.0); Mean Corpuscular Hemoglobin 27.5 pg (28.0-32.0); Mean Corpuscular Hgb Conc. 31.2 g/dL (32.0-36.0); Mean Corpuscular Volume 88.1 fL (80.0-100.0); Monocytes # (auto) 0.5 10 ^3/uL (0-1.3); Monocytes % (auto) 3.6 % (0.0-12.0); Neutrophils # (auto) 13.6 10 ^3/uL (1.6-8.6); Neutrophils % (auto) 94.5 % (37.0-80.0); Red Cell Distribution Width 15.7 % (11.8-14.3); White Blood Cell 14.4 10^3/uL (4.4-10.8)
[2023-05-06 09:02] LABS: Alanine Aminotransferase 29 U/L (7-40); Alkaline Phosphatase 82 U/L (46-116); Anion Gap 13 (5-15); Aspartate Aminotransferase 34 U/L (13-40); BUN/Creatinine Ratio 21.7 (10.0-20.0); Bilirubin, Total 0.3 mg/dL (0.2-1.0); Blood Urea Nitrogen 33 mg/dL (9-23); Calcium 8.9 mg/dL (8.5-10.1); Carbon Dioxide 32 mmol/L (20-30); Chloride 100 mmol/L (98-107); Glucose 248 mg/dL (74-106); Sodium 145 mmol/L (136-145)
[2023-05-06 09:03] LABS: Total Protein 6.9 g/dL (5.7-8.2)
[2023-05-06 09:04] LABS: Potassium 2.8 mmol/L (3.5-5.1)
[2023-05-06] MEDS ORDERED: POTASSIUM CHLORIDE 40 MEQ, LIDOCAINE 1% (LOCAL ANESTH.) 4 ML in SODIUM CHL 0.9% 250 ML IV ONE ×2 (09:15→16:00)
[2023-05-06] MEDS: CYANOCOBALAMIN 500 MCG TAB PO SCH (10:00)
[2023-05-06] MEDS: ASPirin 81 mg TAB PO SCH (10:00)
[2023-05-06] MEDS: FAMOTIDINE (10MG/ML) 2ML VL IV SCH ×2 (10:27→21:53)
[2023-05-06] MEDS: MORPHINE SULFATE 4 MG/ML SYR/VIAL IV PRN ×2 (14:07→20:02)
[2023-05-06] MEDS ORDERED: TPN PER PHARMACY 0 ML IV SCH (15:15)
[2023-05-06 16:02] LABS: Magnesium 1.3 mg/dL (1.6-2.6)
[2023-05-06 16:03] LABS: Phosphorus 4.1 mg/dL (2.4-5.1)
[2023-05-06] MEDS: MAGNESIUM SULFATE 1GM/100ML 100 ML IV SCH ×2 (17:00→18:00)
[2023-05-06] MEDS ORDERED: LIDOCAINE 1% (LOCAL ANESTH.) PF 5ml SDV ID ONE (18:45)
[2023-05-06] MEDS ORDERED: AMINO ACID INFUSION IN D10W 1,000 ML IV NR (20:00)
[2023-05-06] MEDS: methylPREDNISolone SOD SUCC 125 MG/2 ML VL IV SCH (21:53)
[2023-05-07] VITALS (20 sets, daily range): BP systolic 93–153; BP diastolic 61–94; PULSE 71–111; RESP 16–23; TEMP 97–97.6; O2SAT 91–97
[2023-05-07] MEDS ORDERED: DEXTROSE (50%) 50ML SYRG IV SCH
[2023-05-07] MEDS: InsuLIN REG 1unit/0.01ml Soln (100units/ml) SC SCH ×4 (00:11→17:37)
[2023-05-07] MEDS: ACCU-CHEK COMFORT CURVE STRIP VI SCH ×4 (00:12→17:15)
[2023-05-07] MEDS: D5W/SOD CHL 0.45% 1,000 ML IV SCH ×2 (01:12→14:00)
[2023-05-07] MEDS: MORPHINE SULFATE 4 MG/ML SYR/VIAL IV PRN ×4 (02:36→21:47)
[2023-05-07 06:40] LABS: Chloride 100 mmol/L (98-107); Sodium 144 mmol/L (136-145)
[2023-05-07] MEDS: methylPREDNISolone SOD SUCC 125 MG/2 ML VL IV SCH ×3 (06:45→21:51)
[2023-05-07] MEDS: SODIUM CHLOR 0.9% PF (SALINE LOCK) 10ML VIAL/SYR IV SCH ×5 (06:45→21:51)
[2023-05-07] MEDS: FUROSEMIDE 20 MG/2 ML VIAL IV SCH (06:46)
[2023-05-07] MEDS: PIPERACILLIN-TAZOB 3.375GM 100 ML IV SCH ×3 (06:46→22:07)
[2023-05-07] MEDS: LEVOTHYROXINE SODIUM 25 MCG TAB PO SCH (06:58)
[2023-05-07 07:10] LABS: Potassium 2.7 mmol/L (3.5-5.1)
[2023-05-07 07:29] LABS: BUN/Creatinine Ratio 27.2 (10.0-20.0); Blood Urea Nitrogen 40 mg/dL (9-23); Glucose 214 mg/dL (74-106)
[2023-05-07 07:30] LABS: Alkaline Phosphatase 77 U/L (46-116); Aspartate Aminotransferase 27 U/L (13-40); Bilirubin, Total 0.3 mg/dL (0.2-1.0); Calcium 8.3 mg/dL (8.5-10.1); Phosphorus 2.1 mg/dL (2.4-5.1); Total Protein 6.2 g/dL (5.7-8.2)
[2023-05-07 07:31] LABS: Albumin 3.6 g/dL (3.2-4.8); Anion Gap 13 (5-15); Carbon Dioxide 31 mmol/L (20-30)
[2023-05-07 07:37] LABS: Alanine Aminotransferase 30 U/L (7-40); Triglycerides 110 mg/dL (< 150)
[2023-05-07 09:06] LABS: Magnesium 1.4 mg/dL (1.6-2.6)
[2023-05-07] MEDS: ASPirin 81 mg TAB PO SCH (10:00)
[2023-05-07] MEDS: CYANOCOBALAMIN 500 MCG TAB PO SCH (10:00)
[2023-05-07] MEDS: POTASSIUM CHL 20MEQ/100ML 100 ML IV SCH ×2 (10:36→12:11)
[2023-05-07] MEDS: FAMOTIDINE (10MG/ML) 2ML VL IV SCH ×2 (10:37→21:51)
[2023-05-07] MEDS: LORazepam 2MG/ML-1ML VIAL IV PRN (11:57)
[2023-05-07] MEDS: MAGNESIUM SULFATE 1GM/100ML 100 ML IV SCH ×2 (11:57→13:31)
[2023-05-07] MEDS ORDERED: ALBUTEROL MEDNEB 2.5 mg/3ml NEB NEB PRN (13:00)
[2023-05-07] MEDS ORDERED: POTASSIUM PHOSPHATE 22 MEQ in SODIUM CHL 0.9% 100 ML IV ONE (14:00)
[2023-05-07] MEDS: FUROSEMIDE 40 MG/4 ML VIAL IV SCH (17:16)
[2023-05-07] MEDS ORDERED: POTASSIUM CHL 20MEQ/100ML 100 ML IV ONE (20:00)
[2023-05-07] MEDS ORDERED: D5W/SOD CHL 0.45% 1,000 ML IV SCH (20:00)
[2023-05-07] MEDS ORDERED: TPN PER PHARMACY IV NR ×11 (20:00)
[2023-05-08] VITALS (15 sets, daily range): BP systolic 93–138; BP diastolic 57–87; PULSE 79–111; RESP 14–21; TEMP 96.5–97.7; O2SAT 92–97
[2023-05-08] MEDS: MORPHINE SULFATE 4 MG/ML SYR/VIAL IV PRN ×6 (01:10→23:00)
[2023-05-08] MEDS: InsuLIN REG 1unit/0.01ml Soln (100units/ml) SC SCH ×4 (01:10→17:52)
[2023-05-08] MEDS: SODIUM CHLOR 0.9% PF (SALINE LOCK) 10ML VIAL/SYR IV SCH ×5 (06:00→21:12)
[2023-05-08] MEDS: LEVOTHYROXINE SODIUM 25 MCG TAB PO SCH (07:00)
[2023-05-08 07:15] LABS: Alanine Aminotransferase 20 U/L (7-40); Albumin 3.6 g/dL (3.2-4.8); Alkaline Phosphatase 70 U/L (46-116); Aspartate Aminotransferase 24 U/L (13-40); BUN/Creatinine Ratio 37.8 (10.0-20.0); Bilirubin, Total 0.3 mg/dL (0.2-1.0); Blood Urea Nitrogen 37 mg/dL (9-23); Calcium 8.8 mg/dL (8.5-10.1); Chloride 94 mmol/L (98-107); Glucose 161 mg/dL (74-106); Phosphorus 3.8 mg/dL (2.4-5.1); Sodium 141 mmol/L (136-145); Total Protein 6.1 g/dL (5.7-8.2)
[2023-05-08 07:18] LABS: Anion Gap 6.99999 (5-15)
[2023-05-08 07:20] LABS: Potassium 2.9 mmol/L (3.5-5.1)
[2023-05-08 07:21] LABS: Carbon Dioxide > 40 mmol/L (20-30)
[2023-05-08 07:31] LABS: Basophils # (auto) 0 10 ^3/uL (0-0.2); Basophils % (auto) 0.2 % (0.0-2.0); Eosinophils # (auto) 0 10 ^3/uL (0-0.8); Eosinophils % (auto) 0.1 % (0.0-7.0); Hematocrit 37.8 % (36.0-46.0); Hemoglobin 11.9 g/dL (12.2-16.2); Lymphocytes # (auto) 0.2 10 ^3/uL (0.4-5.4); Lymphocytes % (auto) 1.1 % (10.0-50.0); Mean Corpuscular Hemoglobin 27.3 pg (28.0-32.0); Mean Corpuscular Hgb Conc. 31.4 g/dL (32.0-36.0); Mean Corpuscular Volume 86.8 fL (80.0-100.0); Monocytes # (auto) 0.8 10 ^3/uL (0-1.3); Monocytes % (auto) 3.7 % (0.0-12.0); Neutrophils # (auto) 21.2 10 ^3/uL (1.6-8.6); Neutrophils % (auto) 94.9 % (37.0-80.0); Red Blood Cells 4.36 10^6/uL (4.0-5.20); Red Cell Distribution Width 15.8 % (11.8-14.3); White Blood Cell 22.4 10^3/uL (4.4-10.8)
[2023-05-08] MEDS: CYANOCOBALAMIN 500 MCG TAB PO SCH (07:41)
[2023-05-08] MEDS: ASPirin 81 mg TAB PO SCH (07:41)
[2023-05-08] MEDS: PIPERACILLIN-TAZOB 3.375GM 100 ML IV SCH ×3 (07:47→21:12)
[2023-05-08] MEDS: methylPREDNISolone SOD SUCC 125 MG/2 ML VL IV SCH ×3 (07:48→21:11)
[2023-05-08] MEDS: FUROSEMIDE 40 MG/4 ML VIAL IV SCH ×2 (07:48→16:47)
[2023-05-08] MEDS: LORazepam 2MG/ML-1ML VIAL IV PRN ×2 (08:20→16:46)
[2023-05-08] MEDS: ACCU-CHEK COMFORT CURVE STRIP VI SCH ×4 (08:21→17:45)
[2023-05-08] MEDS: FAMOTIDINE (10MG/ML) 2ML VL IV SCH ×2 (08:58→21:12)
[2023-05-08] MEDS: POTASSIUM CHL 20MEQ/100ML 100 ML IV SCH ×4 (09:00→12:14)
[2023-05-08 11:23] LABS: Magnesium 1.7 mg/dL (1.6-2.6)
[2023-05-08 11:23] LABS: Base Excess 14.4 mmol/L (-2.0-2.0)
[2023-05-08] MEDS ORDERED: MAGNESIUM SULFATE 1GM/100ML 100 ML IV ONE (12:00)
[2023-05-08] MEDS ORDERED: IPRATROPIUM BROM 0.5 MG/2.5ML INH SOL NEB SCH (12:00)
[2023-05-08] MEDS ORDERED: ALBUTEROL MEDNEB 2.5 mg/3ml NEB NEB SCH (12:00)
[2023-05-08] MEDS: IPRATROPIUM BROM 0.5 MG/2.5ML INH SOL NEB SCH ×3 (15:30→22:38)
[2023-05-08] MEDS: ALBUTEROL MEDNEB 2.5 mg/3ml NEB NEB SCH ×3 (15:31→22:38)
[2023-05-08] MEDS ORDERED: POTASSIUM CHL 20MEQ/100ML 100 ML IV ONE (19:45)
[2023-05-08] MEDS ORDERED: TPN PER PHARMACY IV NR ×12 (20:00)
[2023-05-09] VITALS (22 sets, daily range): BP systolic 93–142; BP diastolic 56–93; PULSE 87–121; RESP 15–28; TEMP 96–97.9; O2SAT 92–99
[2023-05-09] MEDS: ACCU-CHEK COMFORT CURVE STRIP VI SCH ×4 (01:04→18:06)
[2023-05-09] MEDS: InsuLIN REG 1unit/0.01ml Soln (100units/ml) SC SCH ×4 (01:12→18:07)
[2023-05-09] MEDS: ALBUTEROL MEDNEB 2.5 mg/3ml NEB NEB SCH ×6 (02:41→22:16)
[2023-05-09] MEDS: IPRATROPIUM BROM 0.5 MG/2.5ML INH SOL NEB SCH ×6 (02:41→22:16)
[2023-05-09] MEDS: MORPHINE SULFATE 4 MG/ML SYR/VIAL IV PRN ×2 (03:08→20:14)
[2023-05-09] MEDS: methylPREDNISolone SOD SUCC 125 MG/2 ML VL IV SCH (05:39)
[2023-05-09] MEDS: SODIUM CHLOR 0.9% PF (SALINE LOCK) 10ML VIAL/SYR IV SCH ×5 (05:39→22:00)
[2023-05-09] MEDS: PIPERACILLIN-TAZOB 3.375GM 100 ML IV SCH ×3 (05:39→21:11)
[2023-05-09] MEDS: LEVOTHYROXINE SODIUM 25 MCG TAB PO SCH (05:42)
[2023-05-09] MEDS: FUROSEMIDE 40 MG/4 ML VIAL IV SCH ×2 (06:00→18:06)
[2023-05-09 06:31] LABS: Basophils # (auto) 0 10 ^3/uL (0-0.2); Basophils % (auto) 0.1 % (0.0-2.0); Eosinophils # (auto) 0 10 ^3/uL (0-0.8); Hematocrit 36.2 % (36.0-46.0); Hemoglobin 11.2 g/dL (12.2-16.2); Lymphocytes # (auto) 0.2 10 ^3/uL (0.4-5.4); Lymphocytes % (auto) 0.8 % (10.0-50.0); Mean Corpuscular Hgb Conc. 30.9 g/dL (32.0-36.0); Mean Corpuscular Volume 87.2 fL (80.0-100.0); Monocytes % (auto) 4.4 % (0.0-12.0); Neutrophils # (auto) 21.4 10 ^3/uL (1.6-8.6); Neutrophils % (auto) 94.7 % (37.0-80.0); Red Blood Cells 4.15 10^6/uL (4.0-5.20); White Blood Cell 22.6 10^3/uL (4.4-10.8)
[2023-05-09 06:50] LABS: Alanine Aminotransferase 14 U/L (7-40); Albumin 3.4 g/dL (3.2-4.8); Alkaline Phosphatase 70 U/L (46-116); Aspartate Aminotransferase 19 U/L (13-40); BUN/Creatinine Ratio 38.8 (10.0-20.0); Bilirubin, Total 0.2 mg/dL (0.2-1.0); Blood Urea Nitrogen 40 mg/dL (9-23); Chloride 91 mmol/L (98-107); Glucose 249 mg/dL (74-106); Magnesium 1.9 mg/dL (1.6-2.6); Phosphorus 3.1 mg/dL (2.4-5.1); Potassium 3.4 mmol/L (3.5-5.1); Sodium 139 mmol/L (136-145); Total Protein 5.8 g/dL (5.7-8.2)
[2023-05-09 06:57] LABS: Anion Gap 7.99999 (5-15)
[2023-05-09 06:59] LABS: Carbon Dioxide > 40 mmol/L (20-30)
[2023-05-09] MEDS ORDERED: POTASSIUM CHL 20MEQ/100ML 100 ML IV ONE (08:15)
[2023-05-09] MEDS: ASPirin 81 mg TAB PO SCH (09:36)
[2023-05-09] MEDS: CYANOCOBALAMIN 500 MCG TAB PO SCH (09:37)
[2023-05-09] MEDS: FAMOTIDINE (10MG/ML) 2ML VL IV SCH ×2 (10:55→21:10)
[2023-05-09] MEDS ORDERED: ENOXAPARIN SOD 40 MG/0.4 ML SYRINGE SC ONE (12:45)
[2023-05-09] MEDS ORDERED: acetaZOLAMIDE SODIUM 500 MG VL IV ONE (12:45)
[2023-05-09] MEDS ORDERED: TPN PER PHARMACY IV NR ×12 (20:00)
[2023-05-09] MEDS: methylPREDNISolone SOD SUCC 40 MG/ML VL IV SCH (21:10)
[2023-05-10] VITALS (33 sets, daily range): BP systolic 84–149; BP diastolic 55–93; PULSE 90–119; RESP 15–23; TEMP 96.2–97.8; O2SAT 89–99
[2023-05-10] MEDS: MORPHINE SULFATE 4 MG/ML SYR/VIAL IV PRN ×6 (00:38→22:10)
[2023-05-10] MEDS: InsuLIN REG 1unit/0.01ml Soln (100units/ml) SC SCH ×4 (00:39→18:11)
[2023-05-10] MEDS: IPRATROPIUM BROM 0.5 MG/2.5ML INH SOL NEB SCH ×6 (02:11→22:16)
[2023-05-10] MEDS: ALBUTEROL MEDNEB 2.5 mg/3ml NEB NEB SCH ×6 (02:11→22:16)
[2023-05-10 04:59] LABS: Hematocrit 36.6 % (36.0-46.0); Hemoglobin 11.4 g/dL (12.2-16.2); Mean Corpuscular Hemoglobin 27.1 pg (28.0-32.0); Mean Corpuscular Hgb Conc. 31.1 g/dL (32.0-36.0); Red Blood Cells 4.21 10^6/uL (4.0-5.20); Red Cell Distribution Width 15.7 % (11.8-14.3); White Blood Cell 28.4 10^3/uL (4.4-10.8)
[2023-05-10 05:04] LABS: Band Neutrophils % (manual) 0; Basophils % (manual) 0 (0.0-2.0); Blast Cells 0; Eosinophils % (manual) 0 (0-7); Metamyelocytes % 0; Myelocytes % 0; Promyelocytes % 0; Reactive Lymphocytes 0
[2023-05-10 05:18] LABS: Alanine Aminotransferase 22 U/L (7-40); Albumin 3.4 g/dL (3.2-4.8); Alkaline Phosphatase 80 U/L (46-116); Anion Gap 6 (5-15); Aspartate Aminotransferase 29 U/L (13-40); BUN/Creatinine Ratio 51.6 (10.0-20.0); Bilirubin, Total 0.3 mg/dL (0.2-1.0); Blood Urea Nitrogen 47 mg/dL (9-23); Calcium 9.1 mg/dL (8.7-10.4); Carbon Dioxide 38 mmol/L (20-30); Chloride 95 mmol/L (98-107); Glucose 138 mg/dL (74-106); Phosphorus 3.4 mg/dL (2.4-5.1); Potassium 3.6 mmol/L (3.5-5.1); Sodium 139 mmol/L (136-145); Total Protein 5.7 g/dL (5.7-8.2)
[2023-05-10] MEDS: PIPERACILLIN-TAZOB 3.375GM 100 ML IV SCH ×3 (05:59→21:59)
[2023-05-10] MEDS: ACCU-CHEK COMFORT CURVE STRIP VI SCH ×4 (06:00→18:09)
[2023-05-10] MEDS: SODIUM CHLOR 0.9% PF (SALINE LOCK) 10ML VIAL/SYR IV SCH ×5 (06:00→21:59)
[2023-05-10] MEDS: FUROSEMIDE 40 MG/4 ML VIAL IV SCH (06:01)
[2023-05-10 06:14] LABS: Lymphocytes % (manual) 2 (10.0-50.0); Monocytes % (manual) 3 (0-12); Platelet Estimate Adequate
[2023-05-10 06:15] LABS: Anisocytosis Slight; Stomatocytes Few
[2023-05-10] MEDS: LEVOTHYROXINE SODIUM 25 MCG TAB PO SCH (06:57)
[2023-05-10] MEDS: CYANOCOBALAMIN 500 MCG TAB PO SCH (10:00)
[2023-05-10] MEDS: ASPirin 81 mg TAB PO SCH (10:00)
[2023-05-10] MEDS: methylPREDNISolone SOD SUCC 40 MG/ML VL IV SCH (10:18)
[2023-05-10] MEDS: FAMOTIDINE (10MG/ML) 2ML VL IV SCH ×2 (10:19→21:58)
[2023-05-10] MEDS: ENOXAPARIN SOD 40 MG/0.4 ML SYRINGE SC SCH (10:19)
[2023-05-10] MEDS: acetaZOLAMIDE SODIUM 500 MG VL IV SCH (11:13)
[2023-05-10 13:49] LABS: Base Excess 9.4 mmol/L (-2.0-2.0)
[2023-05-10] MEDS ORDERED: TPN PER PHARMACY IV NR ×12 (20:00)
[2023-05-11] VITALS (28 sets, daily range): BP systolic 79–133; BP diastolic 45–81; PULSE 96–126; RESP 16–25; TEMP 97.3–98.5; O2SAT 84–98
[2023-05-11] MEDS: ACCU-CHEK COMFORT CURVE STRIP VI SCH ×5 (00:17→23:56)
[2023-05-11] MEDS: InsuLIN REG 1unit/0.01ml Soln (100units/ml) SC SCH ×4 (00:18→17:52)
[2023-05-11] MEDS: ALBUTEROL MEDNEB 2.5 mg/3ml NEB NEB SCH ×6 (02:24→22:05)
[2023-05-11] MEDS: IPRATROPIUM BROM 0.5 MG/2.5ML INH SOL NEB SCH ×6 (02:24→22:05)
[2023-05-11] MEDS: MORPHINE SULFATE 4 MG/ML SYR/VIAL IV PRN ×6 (02:53→23:58)
[2023-05-11 05:55] LABS: Red Blood Cells 4.33 10^6/uL (4.0-5.20)
[2023-05-11 05:57] LABS: Hematocrit 37.5 % (36.0-46.0); Hemoglobin 11.9 g/dL (12.2-16.2); Mean Corpuscular Hemoglobin 27.4 pg (28.0-32.0); Mean Corpuscular Hgb Conc. 31.6 g/dL (32.0-36.0); Mean Corpuscular Volume 86.6 fL (80.0-100.0)
[2023-05-11] MEDS: PIPERACILLIN-TAZOB 3.375GM 100 ML IV SCH ×3 (06:06→21:11)
[2023-05-11 06:08] LABS: Basophils % (manual) 0 (0.0-2.0); Blast Cells 0; Eosinophils % (manual) 0 (0-7); Metamyelocytes % 0; Myelocytes % 0; Promyelocytes % 0; Reactive Lymphocytes 0
[2023-05-11] MEDS: LEVOTHYROXINE SODIUM 25 MCG TAB PO SCH (06:11)
[2023-05-11] MEDS: SODIUM CHLOR 0.9% PF (SALINE LOCK) 10ML VIAL/SYR IV SCH ×5 (06:11→21:11)
[2023-05-11 06:17] LABS: Alanine Aminotransferase 36 U/L (7-40); Albumin 3.5 g/dL (3.2-4.8); Alkaline Phosphatase 97 U/L (46-116); Anion Gap 7 (5-15); Aspartate Aminotransferase 52 U/L (13-40); Bilirubin, Total 0.3 mg/dL (0.2-1.0); Blood Urea Nitrogen 54 mg/dL (9-23); Calcium 9.3 mg/dL (8.7-10.4); Carbon Dioxide 36 mmol/L (20-30); Chloride 97 mmol/L (98-107); Glucose 105 mg/dL (74-106); Magnesium 2.4 mg/dL (1.6-2.6); Phosphorus 3.5 mg/dL (2.4-5.1); Potassium 3.9 mmol/L (3.5-5.1); Sodium 140 mmol/L (136-145)
[2023-05-11 06:56] LABS: Band Neutrophils % (manual) 2
[2023-05-11 06:57] LABS: Anisocytosis Slight; Large Platelets FEW; Lymphocytes % (manual) 2 (10.0-50.0); Monocytes % (manual) 4 (0-12); Platelet Estimate Adequate; Stomatocytes Few
[2023-05-11] MEDS: ASPirin 81 mg TAB PO SCH (10:00)
[2023-05-11] MEDS: CYANOCOBALAMIN 500 MCG TAB PO SCH (10:00)
[2023-05-11] MEDS ORDERED: FUROSEMIDE 40 MG/4 ML VIAL IV SCH (10:00)
[2023-05-11] MEDS: FAMOTIDINE (10MG/ML) 2ML VL IV SCH ×2 (10:23→21:11)
[2023-05-11] MEDS: acetaZOLAMIDE SODIUM 500 MG VL IV SCH (10:24)
[2023-05-11] MEDS: methylPREDNISolone SOD SUCC 40 MG/ML VL IV SCH (10:24)
[2023-05-11] MEDS: ENOXAPARIN SOD 40 MG/0.4 ML SYRINGE SC SCH (10:25)
[2023-05-11] MEDS ORDERED: TPN PER PHARMACY IV NR ×12 (20:00)
[2023-05-12] VITALS (19 sets, daily range): BP systolic 113–130; BP diastolic 72–79; PULSE 110–125; RESP 20–30; TEMP 97.5–98.7; O2SAT 91–97
[2023-05-12] MEDS: InsuLIN REG 1unit/0.01ml Soln (100units/ml) SC SCH ×4 (00:18→18:36)
[2023-05-12] MEDS: IPRATROPIUM BROM 0.5 MG/2.5ML INH SOL NEB SCH ×6 (02:01→22:17)
[2023-05-12] MEDS: ALBUTEROL MEDNEB 2.5 mg/3ml NEB NEB SCH ×6 (02:01→22:17)
[2023-05-12] MEDS: LORazepam 2MG/ML-1ML VIAL IV PRN (02:46)
[2023-05-12] MEDS: SODIUM CHLOR 0.9% PF (SALINE LOCK) 10ML VIAL/SYR IV SCH ×5 (06:00→21:20)
[2023-05-12] MEDS: ACCU-CHEK COMFORT CURVE STRIP VI SCH ×3 (06:00→18:06)
[2023-05-12] MEDS: PIPERACILLIN-TAZOB 3.375GM 100 ML IV SCH (06:00)
[2023-05-12] MEDS: LEVOTHYROXINE SODIUM 25 MCG TAB PO SCH (06:01)
[2023-05-12] MEDS: MORPHINE SULFATE 4 MG/ML SYR/VIAL IV PRN ×2 (06:43→21:21)
[2023-05-12 06:46] LABS: Alanine Aminotransferase 52 U/L (7-40); Albumin 3.4 g/dL (3.2-4.8); Alkaline Phosphatase 112 U/L (46-116); Anion Gap 7 (5-15); Aspartate Aminotransferase 59 U/L (13-40); BUN/Creatinine Ratio 58.4 (10.0-20.0); Blood Urea Nitrogen 52 mg/dL (9-23); Calcium 9.1 mg/dL (8.7-10.4); Carbon Dioxide 31 mmol/L (20-30); Chloride 103 mmol/L (98-107); Glucose 144 mg/dL (74-106); Magnesium 2.5 mg/dL (1.6-2.6); Potassium 4.4 mmol/L (3.5-5.1); Sodium 141 mmol/L (136-145)
[2023-05-12 06:47] LABS: Bilirubin, Total 0.3 mg/dL (0.2-1.0); Phosphorus 3.8 mg/dL (2.4-5.1); Total Protein 5.8 g/dL (5.7-8.2)
[2023-05-12 08:00] LABS: Basophils # (auto) 0 10 ^3/uL (0-0.2); Basophils % (auto) 0.2 % (0.0-2.0); Eosinophils # (auto) 0 10 ^3/uL (0-0.8); Hematocrit 37.5 % (36.0-46.0); Hemoglobin 11.8 g/dL (12.2-16.2); Lymphocytes # (auto) 0.6 10 ^3/uL (0.4-5.4); Mean Corpuscular Hgb Conc. 31.6 g/dL (32.0-36.0); Mean Corpuscular Volume 88.5 fL (80.0-100.0); Monocytes # (auto) 1.8 10 ^3/uL (0-1.3); Monocytes % (auto) 6.7 % (0.0-12.0); Neutrophils # (auto) 25.1 10 ^3/uL (1.6-8.6); Neutrophils % (auto) 91.1 % (37.0-80.0); Nucleated Red Blood Cells % 0.1 %; Red Blood Cells 4.23 10^6/uL (4.0-5.20); Red Cell Distribution Width 16.4 % (11.8-14.3); White Blood Cell 27.5 10^3/uL (4.4-10.8)
[2023-05-12] MEDS: ASPirin 81 mg TAB PO SCH (10:00)
[2023-05-12] MEDS: CYANOCOBALAMIN 500 MCG TAB PO SCH (10:00)
[2023-05-12 10:38] LABS: Giant Platelets Few; Platelet Estimate Adequate
[2023-05-12] MEDS: methylPREDNISolone SOD SUCC 40 MG/ML VL IV SCH (11:30)
[2023-05-12] MEDS: ENOXAPARIN SOD 40 MG/0.4 ML SYRINGE SC SCH (11:30)
[2023-05-12] MEDS: FAMOTIDINE (10MG/ML) 2ML VL IV SCH ×2 (11:30→21:20)
[2023-05-12] MEDS: FUROSEMIDE 40 MG/4 ML VIAL IV SCH (11:30)
[2023-05-12] MEDS: acetaZOLAMIDE SODIUM 500 MG VL IV SCH (15:25)
[2023-05-12] MEDS ORDERED: TPN PER PHARMACY IV NR ×12 (20:00)
[2023-05-13] VITALS (13 sets, daily range): BP systolic 83–135; BP diastolic 52–88; PULSE 96–140; RESP 21–30; TEMP 98–98.9; O2SAT 91–97
[2023-05-13] MEDS: ACCU-CHEK COMFORT CURVE STRIP VI SCH ×3 (00:22→12:00)
[2023-05-13] MEDS: InsuLIN REG 1unit/0.01ml Soln (100units/ml) SC SCH ×3 (00:25→12:00)
[2023-05-13] MEDS: ALBUTEROL MEDNEB 2.5 mg/3ml NEB NEB SCH ×4 (01:25→14:00)
[2023-05-13] MEDS: IPRATROPIUM BROM 0.5 MG/2.5ML INH SOL NEB SCH ×4 (01:26→14:00)
[2023-05-13] MEDS: LORazepam 2MG/ML-1ML VIAL IV PRN (04:25)
[2023-05-13] MEDS: SODIUM CHLOR 0.9% PF (SALINE LOCK) 10ML VIAL/SYR IV SCH ×3 (06:39→13:38)
[2023-05-13] MEDS: LEVOTHYROXINE SODIUM 25 MCG TAB PO SCH (06:45)
[2023-05-13 07:35] LABS: Alanine Aminotransferase 104 U/L (7-40); Albumin 3.6 g/dL (3.2-4.8); Alkaline Phosphatase 154 U/L (46-116); Anion Gap 11 (5-15); Aspartate Aminotransferase 117 U/L (13-40); BUN/Creatinine Ratio 57.8 (10.0-20.0); Calcium 9.5 mg/dL (8.7-10.4); Carbon Dioxide 28 mmol/L (20-30); Chloride 105 mmol/L (98-107); Glucose 142 mg/dL (74-106); Magnesium 2.6 mg/dL (1.6-2.6); Potassium 4.1 mmol/L (3.5-5.1); Sodium 144 mmol/L (136-145)
[2023-05-13 07:36] LABS: Bilirubin, Total 0.3 mg/dL (0.2-1.0); Phosphorus 4.6 mg/dL (2.4-5.1); Total Protein 6.1 g/dL (5.7-8.2)
[2023-05-13 07:58] LABS: Blood Urea Nitrogen 67 mg/dL (9-23)
[2023-05-13] MEDS: FAMOTIDINE (10MG/ML) 2ML VL IV SCH (09:38)
[2023-05-13] MEDS: methylPREDNISolone SOD SUCC 40 MG/ML VL IV SCH (09:38)
[2023-05-13] MEDS: FUROSEMIDE 40 MG/4 ML VIAL IV SCH (09:39)
[2023-05-13] MEDS: ASPirin 81 mg TAB PO SCH (09:40)
[2023-05-13] MEDS: ENOXAPARIN SOD 40 MG/0.4 ML SYRINGE SC SCH (09:40)
[2023-05-13] MEDS: CYANOCOBALAMIN 500 MCG TAB PO SCH (09:40)
[2023-05-13] MEDS: acetaZOLAMIDE SODIUM 500 MG VL IV SCH (09:48)
[2023-05-13] MEDS: MORPHINE SULFATE 4 MG/ML SYR/VIAL IV PRN (10:03)
== END 2023-05-14 01:30 | DRG 177 ==
LOC: ER 19:39 → EDBD 19:39 → TELE 23:57 → DOU IN ICU 05-04 11:29 → CENTRAL 05-11 21:53
PROVIDERS: ADMIT Nurse Practitioner Family; ATTEND Internal Medicine Pulmonary Disease
PROC: 05HA33Z Insertion of Infusion Device into Left Brachial Vein, Percutaneous Approach (ICD-10-PCS; 2023-04-30)
PROC: B54NZZA Ultrasonography of Left Upper Extremity Veins, Guidance (ICD-10-PCS; 2023-04-30)
PROC: 4A00X4Z Measurement of Central Nervous Electrical Activity, External Approach (ICD-10-PCS; principal; 2023-05-02)
PROC: 02HV33Z Insertion of Infusion Device into Superior Vena Cava, Percutaneous Approach (ICD-10-PCS; 2023-05-06)
PROC: B548ZZA Ultrasonography of Superior Vena Cava, Guidance (ICD-10-PCS; 2023-05-06)
DX: J69.0 Pneumonitis due to inhalation of food and vomit (principal); G93.41 Metabolic encephalopathy; J96.01 Acute respiratory failure with hypoxia; I50.43 Acute on chronic combined systolic (congestive) and diastolic (congestive) heart failure; G93.1 Anoxic brain damage, not elsewhere classified; E87.3 Alkalosis; E44.0 Moderate protein-calorie malnutrition; I11.0 Hypertensive heart disease with heart failure; D75.839 Thrombocytosis, unspecified; Z20.822 Contact with and (suspected) exposure to COVID-19; Z66 Do not resuscitate; I48.91 Unspecified atrial fibrillation; E87.6 Hypokalemia; G89.29 Other chronic pain; E03.9 Hypothyroidism, unspecified; M19.90 Unspecified osteoarthritis, unspecified site; Z79.899 Other long term (current) drug therapy; Z82.49 Family history of ischemic heart disease and other diseases of the circulatory system; Z68.26 Body mass index [BMI] 26.0-26.9, adult
CPT/HCPCS: 36415; 36569; 36600; 70450; 71045; 71250; 80048; 80053; 80061; 81001; 82140; 82607; 82746; 82805; 82962; 83605; 83735; 83880; 84100; 84132; 84478; 84484; 85007; 85025; 85027; 85610; 85730; 87040; 87081; 87426; 87804; 93005; 94640; 95819; 96365; 96375; 99291; G0378; J1815; J1956; J2001; J2405; J2543; J3480; J3490; J7131